=== PATIENT | male | born 1960 | race Caucasian/White ===

== ENCOUNTER 2021-10-07 16:07 | Emergency (ER) | payer SELFPAY ==
--- OUTSIDE RECORDS SUMMARY | 2021-10-07 16:11 | XMS REPORT | Continuity of Care Document ---
:1960 Author Organization [facility] Address [address] [place] [address] Care Team Providers Name Role Phone Daniel Apodaca MD Attending Clinician Doctor Unassigned, Name Attending Clinician Unavailable Singer DALY Attending Clinician Payers Payer Name Policy Type Policy Number Effective Date Expiration Date S ource Problems Condition Condition Condition Status Onset Resolution Last Treating Co mments Source Name Details Category Date Date Treatment Clinician Date No known No known Disease Unive rs active active ity of problems problems [facility] Allergies, Adverse Reactions, Alerts Allergy Allergy Status Severity Reaction(s) Onset Inactive Treating Comm ents Source Name Type Date Date Clinician Codeine Propensi Active Other - See 2020-0 Shaking U nivers ty to comments 08-05 ity of adverse 00:00: [place] reaction 00 Medical s Branch Lisinopr Propensi Active Palpitations 2020-0 Univers il ty to 08-05 ity of adverse 00:00: [place] reaction 00 Medical s Branch Tramadol Propensi Active Nausea 2020-0 Univer s ty to and/or 08-05 ity of adverse Vomiting 00:00: [place] reaction 00 Medical s Branch CODEINE DRUG Active Other-Cmnt 2020-0 Unive rs INGREDI 08-05 ity of 00:00: [place] 00 Medical Branch LISINOPR DRUG Active Palpitations 2020-0 Un santy [place] INGREDI 08-05 ity of 00:00: [place] 00 Medical Branch TRAMADOL DRUG Active N/V 2020-0 Univers INGREDI 08-05 ity of 00:00: [place] 00 [facility] Social History Social Habit Start Date Stop Date Quantity Comments Source Sex Assigned At Uni versity [facility] Exposure to SARS-CoV-2 Not sure [facility] [place] (event) [facility] Smoking Status Start Date Stop Date Source Unknown if ever smoked Universit y of [facility] Medications Ordered Filled Start Stop Current Ordering Indication Dosage Frequency Signature Comments Components Source Medication Medication Date Date Medication? Clinician (SIG) Name Name amoxicillin 2019- No 1{tbl} 1 tablet, Univers -clavulanat 01-16 Oral, ity of e 16:30: 15:52 ONCE, 1 [place] (AUGMENTIN) 00 :00 dose, Sun Med ical 875-125 mg 01/17/20 at [facility] per tablet 1130, 1 tablet [place]
Re ason for Anti-Infec tive: Documented Infection< br>Documen oli Infection Site: Abdominal< br>Duratio n of Therapy: 10 days iohexol 2019- No 120mL 120 mL, Unive rs (OMNIPAQUE 01-16 Intravenou it y of 350 13:45: 13:28 s, ONCE, 1 [place] BULK-100 00 :00 dose, [facility] Medica l mL) 01/17/20 at Branch injection 0845, 120 mL Routine morpHINE 2019- No 4mg 4 mg, Slow Un santy injection 4 01-16 IV Push, ity of mg 13:45: 14:11 ONCE, 1 [place] 00 :00 dose, Sun Medical 01/17/20 at Branch 0845, STAT famotidine 2019- No 20mg 20 mg, Univ ers (PEPCID 01-16 Intravenou ity o f (PF)) 13:30: 12:48 s, ONCE, 1 [place] injection 00 :00 dose, Sun Medic al 20 mg 01/17/20 at Branch 0830, [place] proMETHazin 2019- No 12.5mg 12.5 mg, Univers e 01-16 IV ity of (PHENERGAN) 13:30: 12:50 [place], [place] 12.5 mg in 00 :00 ONCE, 1 Medica l NaCl 0.9% dose, [place] Branc h (NS) 50 mL 01/17/20 at piggyback 0830, 50 mL NaCl 0.9% 2019- No 1000mL at 999 Uni vers (NS) bolus 01-16 mL/hr, ity of infusion 12:30: 14:13 1,000 mL, [place] 1,000 mL 00 :00 IV Medical Infusion, [place] ONCE, 1 dose, 01/17/20 at 0730, [place] dicyclomine 2020-0 Yes [id number] 20mg Take 1 Univers 20 mg 7-05 tablet by ity of tablet 00:00: mouth [place] 00 every 6 Medical (six) Branch hours as needed for Abdominal pain. proMETHazin 2020-0 Yes [id number] 25mg Take 1 Univers e 25 mg 7-05 tablet by ity of tablet 00:00: mouth [place] 00 every 6 Medical (six) Branch hours as needed for Nausea and Vomiting (N/V). lactulose 2020-0 Yes [id number] 30mL Take 30 mL Univers 10 gram/15 7-05 by mouth ity o f mL oral 00:00: daily. [place] solution 00 Until Medical stools are Branch soft amoxicillin 2019-0 2020- No [id number] 1{tbl} Take 1 Univers -clavulanat 7-05 07-16 tablet by it y of e 875-125 00:00: 04:59 mouth [place] mg per 00 :00 every 12 Medical tablet (twelve) Branch hours for 10 days. ondansetron 2019-2019- No 4mg 4 mg, Slow Univers (ZOFRAN 08-05 IV Push, ity of (PF)) 22:15: 21:16 ONCE, 1 [place] injection 4 00 :00 dose, Wed Med ical mg 08/05/19 at Branch 1615, [place] dexamethaso 2019- No 10mg 10 mg, IV Univers ne 08-05 Push, ity of (DECADRON 22:15: 21:19 ONCE, 1 [place] PHOSPHATE) 00 :00 dose, Wed Medi toshia injection 08/05/19 at Bran ch 10 mg 1615, STAT piperacilli 2019-2019- No 3.375g 3.375 g, Univers n-tazobacta 08-05 IV ity of m (ZOSYN) 21:05: 21:50 [place], [place] 3.375 g in 00 :00 ONCE, 1 Medica l NaCl 0.9% dose, Wed Branc h (NS) 100 mL 08/05/19 at MINI-BAG 1515, 100 mL
Reas on for Anti-Infec tive: Documented Infection< br>Documen oli Infection Site: Skin / Soft Tissue
Duration of Therapy: 7 days FENTanyl PF 2019-0 2020- No 100ug 100 mcg, Univers (SUBLIMAZE 08-05 Slow IV ity o f (PF)) 21:04: 21:17 Push, [place] injection 00 :00 ONCE, 1 Medical 100 mcg dose, Wed Branch 08/05/19 at 1515, STAT chlorhexidi 2020-0 Yes [id number] 15mL Swish and Univers ne 0.12 % 1-22 spit out ity of mouthwash 00:00: 15 mL 2 [place] 00 (two) Medical times Branch daily. methylPREDN 2020-0 Yes [id number] Take by Univers ISolone -22 mouth ity of (MEDROL, 00:00: SEE-INSTRU [place] NEGRITA,) 4 mg 00 CTIONS. Medica l tablets follow Branch package directions acetaminoph 2020-0 Yes [id number] 1{tbl} Take 1 Univers en-codeine 1-22 tablet by ity of (TYLENOL-CO 00:00: mouth [place] DEINE #3) 00 every 4 Medical 300-30 mg (four) Branch tablet hours as needed for Pain (scale 7-10). ondansetron 2020-0 Yes [id number] 4mg Take 1 Univers 4 mg 1-22 tablet by ity of disintegrat 00:00: mouth [place] ing tablet 00 every 8 Medica l (eight) Branch hours as needed for Nausea and Vomiting (N/V). penicillin 2020-0 Yes [id number] 1000mg Take 2 Univers v potassium 1-22 tablets by it y of 500 mg 00:00: mouth 2 [place] tablet 00 (two) Medical times Branch daily. chlorhexidi 2020-0 Yes [id number] 15mL Swish and Univers ne 0.12 % 1-22 spit out ity of mouthwash 00:00: 15 mL 2 [place] 00 (two) Medical times Branch daily. methylPREDN 2020-0 Yes [id number] Take by Univers ISolone 1-22 mouth ity of (MEDROL, 00:00: SEE-INSTRU [place],) 4 mg 00 CTIONS. Medica l tablets follow Branch package directions acetaminoph 2020-0 Yes [id number] 1{tbl} Take 1 Univers en-codeine 1-22 tablet by ity of (TYLENOL-CO 00:00: mouth [place] DEINE #3) 00 every 4 Medical 300-30 mg (four) Branch tablet hours as needed for Pain (scale 7-10). ondansetron Yes [id number] 4mg Take 1 Univers 4 mg -22 tablet by ity of disintegrat 00:00: mouth [place] ing tablet 00 every 8 Medica l (eight) Branch hours as needed for Nausea and Vomiting (N/V). penicillin 2019-0 Yes [id number] 1000mg Take 2 Univers v potassium 1-22 tablets by it y of 500 mg 00:00: mouth 2 [place] tablet 00 (two) Medical times Branch daily. chlorhexidi 2019- No [id number] 15mL Swish and Univers ne 0.12 % 08-05-05 spit out ity o f mouthwash 00:00: 00:00 15 mL 2 [place] 00 :00 (two) Medical times Branch daily. methylPREDN 2019- No [id number] Take by Univers ISolone 08-05-05 mouth ity of (MEDROL, 00:00: 00:00 [place]INSTRU [place] NEGR[place],) 4 mg 00 :00 CTIONS. Medica l tablets follow Branch package directions acetaminoph 2019- No [id number] 1{tbl} Take 1 Univers en-codeine 08-05-05 tablet by ity of (TYLENOL-CO 00:00: 00:00 [place] DEINE #3) 00 :00 every 4 Medical 300-30 mg (four) Branch tablet hours as needed for Pain (scale 7-10). ondansetron 2019- No [id number] 4mg Take 1 Univers 4 mg 08-05-05 tablet by ity of disintegrat 00:00: 00:00 [place] ing tablet 00 :00 every 8 Medica l (eight) Branch hours as needed for Nausea and Vomiting (N/V). penicillin 2020- No [id number] 1000mg Take 2 Univers v potassium -02 02-05 tablets by i ty of 500 mg 00:00: 00:00 mouth 2 [place] tablet 00 :00 (two) Medical times Branch daily. proMETHazin Yes 25mg Take 1 Tab Univers e 9-27 by mouth ity of (PHENERGAN) 00:00: every 6 [place] 25 mg 00 (six) Medical tablet hours as Branch needed for Nausea and Vomiting (N/V). traMADOL 2015-0 Yes 50mg Take 1 Tab Uni vers (ULTRAM) 50 9-27 by mouth ity of mg tablet 00:00: every 6 [place] 00 (six) Medical hours as Branch needed for Pain (scale 4-6). proMETHazin 2015-0 Yes 25mg Take 1 Tab Univers e 9-27 by mouth ity of (PHENERGAN) 00:00: every 6 [place] 25 mg 00 (six) Medical tablet hours as Branch needed for Nausea and Vomiting (N/V). traMADOL 2015-0 Yes 50mg Take 1 Tab Uni vers (ULTRAM) 50 9-27 by mouth ity of mg tablet 00:00: every 6 [place] 00 (six) Medical hours as Branch needed for Pain (scale 4-6). proMETHazin 2015-0 Yes 25mg Take 1 Tab Univers e 9-27 by mouth ity of (PHENERGAN) 00:00: every 6 [place] 25 mg 00 (six) Medical tablet hours as Branch needed for Nausea and Vomiting (N/V). traMADOL 2015-0 Yes 50mg Take 1 Tab Uni vers (ULTRAM) 50 9-27 by mouth ity of mg tablet 00:00: every 6 [place] 00 (six) Medical hours as Branch needed for Pain (scale 4-6). proMETHazin 2015-0 2020- No 25mg Take 1 Tab Univers e 9-27 07-05 by mouth ity of (PHENERGAN) 00:00: 00:00 every 6 [place] 25 mg 00 :00 (six) Medical tablet hours as Branch needed for Nausea and Vomiting (N/V). traMADOL 2014-0 2020- No 50mg Take 1 Tab Un santy (ULTRAM) 50 9-27 07-05 by mouth ity of mg tablet 00:00: 00:00 every 6 [place] 00 :00 (six) Medical hours as Branch needed for Pain (scale 4-6). Vital Signs Vital Name Observation Time Observation Value Comments Source Oxygen saturation in 2020-01-17 15:59:30 99 /min [facility] Arterial blood by [facility] Pulse oximetry Branch Heart rate 2020-01-17 15:00:00 72 /min [facility] Respiratory rate 2020-01-17 15:00:00 18 /min [facility] Medical [place] Systolic blood 2020-01-17 15:00:00 150 mm[Hg] Univer sity of pressure [facility] Diastolic blood 2020-01-17 15:00:00 83 mm[Hg] Unive rsity of [facility] Body temperature 2020-01-17 12:10:00 37.44 [facility] Body weight 2020-01-17 12:10:[address] [facility] BMI 2020-01-17 12:10:00 24.33 kg/m2 Universi ty [facility] Systolic blood 2019-08-05 22:35:47 154 mm[Hg] Univer sity of pressure [facility] Diastolic blood 2019-08-05 22:35:47 92 mm[Hg] [facility] Heart rate 2019-08-05 22:35:47 86 /min [facility] Body temperature 2019-08-05 22:35:47 37.44 Hortensia [facility] Respiratory rate 2019-08-05 22:35:47 18 /min [facility] Oxygen saturation in 2019-08-05 22:35:47 100 /min [facility] Arterial blood by [facility] Pulse oximetry [place] Body height 2019-08-05 20:35:00 172.7 cm [facility] Body weight 2019-08-05 20:35:00 72.576 kg [facility] BMI 2019-08-05 20:35:00 24.33 kg/m2 [facility] Procedures Procedure Date / Time Performing Clinician Source Performed URINALYSIS 2020-01-17 14:14:00 Travis Apodaca [facility] CT ABDOMEN PELVIS W 2020-01-17 13:32:27 Travis [facility]odaca [facility] COVID-19 (ID NOW RAPID 2020-01-17 12:54:00 Travis Apodaca [facility] TESTING) Medical Branch LIPASE 2020-01-17 12:23:00 Travis Apodaca [facility] HEPATIC FUNCTION PANEL 2020-01-17 12:23:00 Travis Apodaca [facility] ([id number]) (ALB,T.PRO,BILI Medical Branch T,BU/BC,ALT,AST,ALK PHOS) BASIC METABOLIC PANEL 2020-01-17 12:23:00 Constanza Brooklyn [facility] (NA, K, CL, CO2, Medical Branch GLUCOSE, BUN, CREATININE, CA) CBC WITH DIFFERENTIAL 2020-01-17 12:23:00 Travis Apodaca [facility] NOTICE OF PRIVACY 2020-01-17 12:00:00 Doctor Unassigned, No [facility] PRACTICES Name [facility] CONSENT/REFUSAL FOR 2020-01-17 11:58:34 Doctor Unassigned, No [facility] Name [facility] INCISION AND DRAINAGE 2019-08-05 20:40:51 Amaury Brito sity [facility] CONSENT/REFUSAL FOR 2019-08-05 20:28:16 Doctor Unassigned, No [facility] Name Medical [place] Encounters Start End Encounter Admission Attending Care Care Encounter Source Date/Time Date/Time Type Type Clinicians Facility Department ID 2020-01-17 2020-01-17 Emergency Constanza [facility] [id number] Univers 07:04:34 11:04:00 Travis Vega [id number] ity [facility] [id number] [facility] [id number] [place] [id number] [place] 2020-01-17 2020-01-17 Emergency X [facility] ERT [id number] Univers 07:04:34 07:04:34 ity of [facility] 2020-01-17 2020-01-17 Orders Doctor STOLL [id number] Univers 00:00:00 00:00:00 Only UnassignedVIET [id number] [place] [facility] [id number] [place] [id number] [facility] 009 Branch 2019-08-05 2019-08-05 Emergency Singer MTGARY [id number] Univers 14:30:59 18:55:00 Amaury Vega [id number] i ty of [place] [id number] [facility] [id number] [facility] 084 Branch 2019-08-05 2019-08-05 Orders Doctor STOLL [id number] Univers 00:00:00 00:00:00 Only Unassigned, VIET [id number] ity of [place] [facility] [id number] [place] [id number] [address] Results Test Description Test Time Test Comments Results Result Comments Source Urinalysis 2020-01-17 14:40:00 Test Item Value Reference Range Interpretation Comme nts APPEARANCE (test code = Clear Clear 8118747697) COLOR (test code = 2281964846) Lissette Yellow A PH (test code = 3702159876) 4.8-8.0 SP GRAVITY (test code = 1.003-1.030 2987628351) GLU U QUAL (test code = Normal Normal 6418572709) BLOOD (test code = 0765866420) Negative Negative KETONES (test code = 4222883184) Negative Negative PROTEIN (test code = 2887-8) Negative Negative UROBILIN (test code = 4.0 mg/dL Normal A 4155884239) BILIRUBIN (test code = Negative Negative 7879748864) NITRITE (test code = 4193126147) Negative Negative LEUK LINDSAY (test code = Negative Negative 3712426535) RBC/HPF (test code = 1113730847) See_Comment [Automated message] The system which ge nerated this result transmit oli reference range: 0 - 3 HP F. The reference range was not used to interpret th is result as normal/abnormal . WBC/HPF (test code = 3786210931) See_Comment [Automated message] The system which ge nerated this result transmit oli reference range: 0 - 5 HP F. The reference range was not used to interpret th is result as normal/abnormal . BACTERIA (test code = Negative Negative 0859937954) Lab Interpretation (test code = Abnormal 94450-6) [facility] W [id number] 14:39:35 Motion artifact limiting the evaluation. Mural wall thickening and enhancement and pericolonic fat stranding aremost pronounced about the sigmoid colon with sigmoid colon diverticulosis,these findingsare suggestive diverticulitis. Similar changes areappreciated about the ascending and descending colon suggestive of colitis.No free air or localized fluid collection is identified. Normal-appearingappendix. Preliminary Report Dictated by Resident: Melo Carter ?MD. Donn, have reviewed this study and agree withthe above report.EXAM: CT ABDOMEN AND PELVIS WITH CONTRAST HISTORY: 2 day of LLQ abdominal pain, constant with wax/wane intensity,cramping. Leukocytosis of 13.1 COMPARISON: None. TECHNIQUE AND FINDINGS: Contiguous axial imaging from the level of the lungbases through the proximal thighs was performed after the administration of120 cc of intravenous Omnipaque contrast. Coronal and sagittalreconstructions were obtained. ?Auto mA and/or iterative reconstructionwereused to reduce radiation dose. FINDINGS: Motion artifact is limiting the evaluation. LOWER THORAX: The lungs bases are clear. No cardiomegaly. LIVER: A 0.4 cm hypoattenuating hepatic focus is seen in segment VIII(2:21). ?Normal contour. GALLBLADDER AND BILIARY TREE: The gallbladder is distended but not dilated.The CBD is mildly dilated measuring 0.7 cm. ? No gallbladder wallthickening. SPLEEN: No splenomegaly. PANCREAS: No ductal dilation or masses. ADRENAL GLANDS: No adrenal nodules. KIDNEYS: No hy dronephrosis, stones, or masses. PERITONEUM AND RETROPERITONEUM: No free air or fluid. LYMPH NODES: No lymphadenopathy. GI TRACT: Small sliding hiatal hernia is noted. Appendix appearsunremarkable (2:90). The colon and rectum is distended with liquid-likestool. Diverticulosis of the sigmoid colon is noted. Mural wall thickeningand enhancement with pericolonic fat stranding is appreciated. The extentof the symptomatic changes cannot be accurately assessed due to motionartifact and it might be involving the ascending and descending colon also. PELVIS/BLADDER: Mild indentation of the celiac trunk by the diaphragmaticcrus without subsequent dilatation. VESSELS: Unremarkable. BONES AND SOFT TISSUES: Nosuspicious lytic or sclerotic bony lesions. L4over the L5 grade 1 posterior listhesis is noted. [facility], Radiant Results Inft User - 01/17/2020 9:40 AM CDTEXAM: CT ABDOMEN AND PELVIS WITH CONTRASTHISTORY: 2 day of LLQ abdominal pain, constant with wax/wane intensity,cramping. Leukocytosis of 13.1COMPARISON: None.TECHNIQUE AND FINDINGS: Contiguous axial imaging from the level of the lungbases through the proximal thighs was performed after the administration of120 cc of intravenous Omnipaque contrast. Coronal and sagittalreconstructions were obtained. Auto mA and/or iterative reconstructionwere used to reduce radiation dose.FINDINGS:Motion artifact is limiting the evaluation.LOWER THORAX: The lungs bases are clear. No cardiomegaly. LIVER: A 0.4 cm hypoattenuating hepatic focus is seen in segment VIII(2:21). Normal contour.GALLBLADDER AND BILIARY TREE: The gallbladder is distended but not dilated.The CBD is mildly dilated measuring 0.7 cm. No gallbladder wallthickening.SPLEEN: No splenomegaly.PANCREAS: No ductal dilation or masses.ADRENAL GLANDS: No adrenal nodules.KIDNEYS: No hydronephrosis, stones, or masses.PERITONEUM AND RETROPERITONEUM: No free air or fluid.LYMPH NODES: No lymphadenopathy.GI TRACT: Small sliding hiatal hernia is noted. Appendix appearsunremarkable (2:90). The colon and rectum is distended with liquid- likestool. Diverticulosis of the sigmoid colon is noted. Mural wall th ickeningand enhancement with pericolonic fat stranding is appreciated. The extentof the symptomatic changes cannot be accurately assessed due to motionartifact and it might be involving the ascending and descending colon also.PELVIS/BLADDER: Mild indentation of the celiac trunk by the diaphragmaticcrus without subsequent dilatation.VESSELS: Unremarkable.BONES AND SOFT TISSUES: No suspicious lytic or sclerotic bony lesions. L4over the L5 grade 1 posterior listhesis is noted.IMPRESSIONMotion artifact limiting the evaluation.Mural wall thickening and enhancement and pericolonic fat stranding aremost pronounced about the sigmoid colon with sigmoid colon diverticulosis,these findings are suggestive diverticulitis. Similar changes areappreciated about the ascending and descending colon suggestive of colitis.No free air or localized fluid collection is identified. Normal- appearingappendix.Preliminary Report Dictated by Resident: Melo Sommers MD., have reviewed this studyand agree withthe above report.[facility] (ID NOW RAPID TESTING) 2020-01-17 13:18:00 Test Item Value Reference Range Interpretation Comments SARS-CoV-2 Rapid ID NOW Not Detected Not Detected (test code = 00528-2) FLORENCIO (test code = FLORENCIO) ID NOW COVID-19 Assay is an isothermal nucleic acid amplification test intended for the qualitative detection of nucleic acid from SARS-CoV-2 viral RNA in nasopharyngeal (MUSHROOM PRESS OPERATOR) specimens. It is used under Emergency Use Authorization (EUA) by FDA. The limit of detection (LOD) of the assay is 125 Genome Equivalents/mL. A positive result is indicative of the presence of SARS-CoV-2 RNA. ?Clinical correlation with patient history and other diagnostic information is necessary to determine patient infection status. A negative (Not Detected) result does not preclude SARS-CoV-2 infection. In patients with clinical symptoms and other tests that are consistent with SARS-CoV-2 infection, negative results should be treated as presumptive negative and a new specimen should be tested with alternative PCR molecular test. Invalid: Please collect a new specimen for repeat patient testing if clinically indicated. Lab Interpretation Normal (test code = 95215-7) [facility] (ALB, T.PRO, BILI T, BU/BC, ALT, AST, ALK PHOS)2020-01-17 12:57:00 Test Item Value Reference Range Interpretation Comments TOTAL BILI (test code = 5306514430) 0.7 mg/dL 0.1-1.1 BILI UNCON (test code = 1740281011) 0.7 mg/dL 0.1-1.1 BILI CONJ (test code = 6680503988) 0.0 mg/dL 0-0.3 T PROTEIN (test code = 3410986118) 7.4 g/dL 6.3-8.2 ALBUMIN (test code = 7675651464) 4.5 g/dL 3.5-5 ALK PHOS (test code = 4873044678) 99 U/L 34-122 ALTv (test code = 1742-6) 23 U/L 5-50 AST(SGOT) (test code = 8740708500) 28 U/L 13-40 Lab Interpretation (test code = Normal 27547-7) [facility] (NA, K, CL, CO2, GLUCOSE, BUN, CREATININE, CA)2020-01-17 12:56:00 Test Item Value Reference Range Interpretation Comments NA (test code = 139 mmol/L 135-145 2204898559) K (test code = 3.6 mmol/L 3.5-5 6390973117) CL (test code = 107 mmol/L 98-108 8268793715) CO2 TOTAL (test code = 22 mmol/L 23-31 L 5352422060) AGAP (test code = 2-16 4092090962) BUN (test code = 20 mg/dL 7-23 1319940320) GLUCOSE (test code = 197 mg/dL 70-110 H 5941711464) CREATININE (test code = 1.01 mg/dL 0.6-1.25 0570817319) CALCIUM (test code = 9.5 mg/dL 8.6-10.6 2936838240) eGFR Calculation mL/min/1.73m2 (Non-) (test code = 1094070172) eGFR Calculation mL/min/1.73m2 () (test code = 2116459481) FLORENCIO (test code = FLORENCIO) Association of Glomerular Filtration Rate (GFR) and Staging of Kidney Disease* + --+ --+ ------+| GFR (mL/min/1.73 m2) ?| With Kidney Damage ?| ?Without Kidney Damage+ --------+ --------+ +| ?>90 ?| ?Stage one ?| ? Normal ?+ ---+ ---+ -------+| ?60-89 ?| ?Stage two ?| ? Decreased GFR ? + --+ --+ ------+| ?30-59 ?| ?Stage three ?| ? Stage three ? + --+ --+ ------+| ?15-29 ?| ?Stage four ? | ? Stage four ?+ ---+ ---+ -------+| ?<15 (or dialysis) ? ?| ?Stage five ? | ? Stage five ?+ ---+ ---+ -------+ *Each stage assumes the associated GFR level has been in effect for at least three months. ?Stages 1 to 5, with or without kidney disease, indicate chronic kidney disease. Notes: Determination of stages one and two (with eGFR >59mL/min/1.73 m2) requires estimation of kidney damage for at least three months as defined by structural or functional abnormalities of the kidney, manifested by either:Pathological abnormalities or Markers of kidney damage (including abnormalities in the composition of the blood or urine or abnormalities in imaging tests). Lab Interpretation Abnormal (test code = 34438-6) [facility] HospitalLipase [id number] 12:56:00 Test Item Value Reference Range Interpretation Comments LIPASE (test code = 5350227658) 39 U/L 0-220 Lab Interpretation (test code = Normal 04231-4) [facility] WITH [id number] 12:36:00 Test Item Value Reference Range Interpretation Comments WBC (test code = See_Comment H [Automated 6690-2) message] The sy stem which generated this result transmitted reference range : 4.20 - 10.70 10*3/?L. The reference range was not used to interpret this result as normal/abnormal . RBC (test code = See_Comment [Automated 789-8) message] The sy stem which generated this result transmitted reference range : 4.26 - 5.52 10*6/?L. The reference range was not used to interpret this result as normal/abnormal . HGB (test code = 17.4 g/dL 12.2-16.4 H 718-7) HCT (test code = 49.4 % 38.4-49.3 H 4544-3) MCV (test code = 95.9 fL 81.7-95.6 H 787-2) MCH (test code = 33.8 pg 26.1-32.7 H 785-6) MCHC (test code = 35.2 g/dL 31.2-35 H 786-4) RDW-SD (test code = 44.1 fL 38.5-51.6 55102-5) RDW-CV (test code = 12.5 % 12.1-15.4 788-0) PLT (test code = See_Comment [Automated 777-3) message] The sy stem which generated this result transmitted reference range : 150 - 328 10*3/ ?L. The reference r negra was not used to interpret this result as normal/abnormal . MPV (test code = 10.2 fL 9.8-13 96648-3) NRBC/100 WBC (test See_Comment [Automat ed code = 7368926007) message] The system which generated this result transmitted reference range : 0.0 - 10.0 /100 WBCs. The refer ence range was not u sed to interpret th is result as normal/abnormal . NRBC x10^3 (test code <0.01 See_Comment [Auto mated = [id number]) message] The s ystem which generated this result transmitted reference range : 10*3/?L. The reference range was not used to interpret this result as normal/abnormal . GRAN MAT (NEUT) % 68.2 % (test code = 770-8) IMM GRAN % (test code 0.50 % = 0591340076) LYMPH % (test code = 27.7 % 736-9) MONO % (test code = 2.1 % 5905-5) EOS % (test code = 1.2 % 713-8) BASO % (test code = 0.3 % 706-2) GRAN MAT x10^3(ANC) 8.90 10*3/uL 1.99-6.95 H (test code = 9099715057) IMM GRAN x10^3 (test 0.06 10*3/uL 0-0.06 code = 9372755516) LYMPH x10^3 (test code 3.62 10*3/uL 1.09-3.23 H = 731-0) MONO x10^3 (test code 0.27 10*3/uL 0.36-1.02 L = 742-7) EOS x10^3 (test code = 0.16 10*3/uL 0.06-0.53 711-2) BASO x10^3 (test code 0.04 10*3/uL 0.01-0.09 = 704-7) Lab Interpretation Abnormal (test code = 05072-3) [facility] [id number] 20:40:51Amaury Brito DO ? ? 08/05/2019 ?5:24 PMI and DDate/Time: 08/05/2019 4:55 PMPerformed by: Amaury Brito DOAuthorized by: Amaury Brito DO Consent: ?Consent obtained: ?Verbal ?Consent given by:?Patient ?Risks discussed: ?Incomplete drainage, bleeding, pain and infection ?Alternatives discussed: ?No treatment and delayed treatmentLocation: ?Type: ?Abscess ?Location: ?Head ?Head location: ?FacePre- procedure details: ?Skin preparation: ?HibiclensAnesthesia (see MAR for exact dosages): ?Anesthesia method: ?Local infiltration and nerve block ?Local anesthetic: ?Lidocaine 1% WITH epi ?Block location: ?Mental, inferior alveolar. ?Block needle gauge: ?27 G ?Block anesthetic: ?Lidocaine 1% WITH epi and bupivacaine 0.25% w/o epi ?Block injection procedure: ?Introduced needle, anatomic landmarks identified, incremental injection and anatomic landmarks palpated ?Block outcome: ?Incomplete blockProcedure type: ?Complexity: ?ComplexProcedure details: ?Needle aspiration: no ? ?Incision types: ?Stab incision ?Incision depth: ?Subcutaneous ?Scalpel blade: ?11 ?Wound management: ?Probed and deloculated and irrigated with saline ?Drainage: ?Purulent ?Drainage amount: ?Moderate ?Wound treatment: ?Wound left openPost-procedure details: ?Patient tolerance of procedure: ?Tolerated well, no immediate complications [facility]"
[2021-10-07] MEDS ORDERED: LIDOCAINE 1% MPF 5 ML VIAL ONE (16:19)
[2021-10-07] MEDS ORDERED: TETANUS & DIPHTHERIA TOX,ADULT 0.5 ML VIAL ONE (16:19)
--- NOTE | 2021-10-07 16:24 | EDPHYS ---
Physician Documentation [facility] Name: Vadim Wilson Age: 61 yrs Sex: Male : 1960 Arrival Date: 10/07/2021 Time: 16:10 Bed 23 Private MD: ED Physician Kervin Troy HPI: 10/07 16:15 This 61 yrs old Male presents to ER via Unassigned with complaints of fish hook on kb right hand. 16:15 The patient or guardian reports the patient has a suspected foreign body, of the right kb hand. The reported likely foreign body is a fishhook. Onset: The symptoms/episode began/occurred just prior to arrival. Current symptoms: foreign body sensation. Treatment Prior to Arrival: none. The patient has not experienced similar symptoms in the past. The patient has not recently seen a physician. Historical: - Allergies: 16:26 No Known Allergies; ld1 - Home Meds: 16:26 None [Active]; ld1 - PMHx: 16:26 None; ld1 - PSHx: 16:26 Unable to Obtain; ld1 - Immunization history:: Adult Immunizations up to date, Client reports receiving the 2nd dose of the Covid vaccine. - Social history:: Smoking status: Patient reports the use of cigarette tobacco products, Patient/guardian denies using alcohol. ROS: 16:14 Constitutional: Negative for fever, chills, and weight loss. kb 16:14 Skin: Positive for puncture, of the medial aspect of right hand, FB. 16:14 All other systems are negative. Exam: 16:13 Constitutional: This is a well developed, well nourished patient who is awake, alert, kb and in no acute distress. Head/Face: Normocephalic, atraumatic. ENT: Moist Mucous membranes Respiratory: Respirations even and unlabored. No increased work of breathing. Talking in full sentences MS/ Extremity: Pulses equal, no cyanosis. Neurovascular intact. Full, normal range of motion. Neuro: Awake and alert, GCS 15, oriented to person, place, time, and situation. Moves all extremities. Normal gait. Psych: Awake, alert, with orientation to person, place and time. Behavior, mood, and affect are within normal limits. 16:13 Skin: injury, puncture(s), that are superficial, of the medial aspect of right hand, with fishhook . Vital Signs: 16:14 BP 178 / 105; Pulse 76; Resp 17; Temp 98.3(TE); Pulse Ox 100% on R/A; Weight 70.31 kg; ab2 Height 5 ft. 8 in. (172.72 cm); Pain 5/10; 16:26 BP 162 / 98; Pulse 72; Resp 18; Pulse Ox 100% on R/A; ld1 16:14 Body Mass Index 23.57 (70.31 kg, 172.72 cm) ab2 Procedures: 16:23 Foreign Body Removal: a fishhook, from the right medial aspect of right hand, by marta kb pushed through, cut and hook pulled out. The patient tolerated the removal well. MDM: 16:10 Patient medically screened. kb 16:13 Data reviewed: vital signs, nurses notes. kb 16:23 Data interpreted: Pulse oximetry: on room air is 100 %. Interpretation: normal. kb Counseling: I had a detailed discussion with the patient and/or guardian regarding: the historical points, exam findings, and any diagnostic results supporting the discharge/admit diagnosis, the need for outpatient follow up, a family practitioner, to return to the emergency department if symptoms worsen or persist or if there are any questions or concerns that arise at home. 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 Exp: ld1 12/02/2022. Lot #: [id number]. } Route: IM; Site: left deltoid; 16:25 Follow up: Response: No adverse reaction ld1 Disposition Summary: 10/07/21 16:24 Discharge Ordered Location: Home kb Condition: Stable kb Diagnosis - Puncture wound with foreign body of right hand kb Followup: kb - With: Emergency Department - When: As needed - Reason: Worsening of condition Followup: kb - With: Private Physician - When: 2 - 3 days - Reason: Recheck today's complaints, Continuance of care, Re-evaluation by your physician Discharge Instructions: - Discharge Summary Sheet kb - Puncture Wound, [id number] kb - Hand or Foot Foreign Body, Adult kb Forms: - Medication Reconciliation Form kb - Thank You Letter kb - Antibiotic Education kb - Prescription Opioid Use kb Addendum: 10/11/2021 07:06 Co-signature as Attending Physician, Kervin Troy MD I agree with the assessment and c smart plan of care. Signatures: Apoorva Rea, CONCRETE TECHNICIAN-C CONCRETE TECHNICIAN-Kervin Smith MD MD cha Dibbern, Lauren, RN RN ld1
--- NOTE | 2021-10-07 16:24 | ER ---
Nurse's Notes [facility] Name: Vadim Wilson Age: 61 yrs Sex: Male : 1960 Arrival Date: 10/07/2021 Time: 16:10 Bed 23 Private MD: Diagnosis: Puncture wound with foreign body of right hand Presentation: 10/07 16:14 Chief complaint: Patient states: "My girlfriend got me this hook and I reached up for ab2 something and I brought my hand shala and it caught it.". Coronavirus screen: Vaccine status: Patient reports receiving the 2nd dose of the covid vaccine. Client denies travel out of the [place] in the last 14 days. At this time, the client does not indicate any symptoms associated with coronavirus-19. Ebola Screen: Patient negative for fever greater than or equal to 101.5 degrees Fahrenheit, and additional compatible Ebola Virus Disease symptoms Patient denies exposure to infectious person. Patient denies travel to an Ebola-affected area in the 21 days before illness onset. No symptoms or risks identified at this time. Initial Sepsis Screen: Does the patient meet any 2 criteria? No. Patient's initial sepsis screen is negative. Does the patient have a suspected source of infection? No. Patient's initial sepsis screen is negative. Risk Assessment: Do you want to hurt yourself or someone else? Patient reports no desire to harm self or others. Onset of symptoms is unknown. 16:14 Method Of Arrival: Ambulatory ab2 16:14 Acuity: RENITA 4 ab2 Triage Assessment: 16:17 General: Appears in no apparent distress. uncomfortable, Behavior is calm, cooperative, ab2 appropriate for age. Pain: Complains of pain in right hand. Injury Description: Foreign body is located right hand. Historical: - Allergies: 16:26 No Known Allergies; ld1 - Home Meds: 16:26 None [Active]; ld1 - PMHx: 16:26 None; ld1 - PSHx: 16:26 Unable to Obtain; ld1 - Immunization history:: Adult Immunizations up to date, Client reports receiving the 2nd dose of the Covid vaccine. - Social history:: Smoking status: Patient reports the use of cigarette tobacco products, Patient/guardian denies using alcohol. Screenin:26 Abuse screen: Denies threats or abuse. Denies injuries from another. Nutritional ld1 screening: No deficits noted. Nutritional screening: No deficits noted. Tuberculosis screening: No symptoms or risk factors identified. Fall Risk None identified. Assessment: 16:25 General: Appears in no apparent distress. comfortable, Behavior is calm, cooperative, ld1 appropriate for age. Pain: Denies pain. Neuro: Level of Consciousness is awake, alert, obeys commands, Oriented to person, place, time, situation. Cardiovascular: Capillary refill < 3 seconds Patient's skin is warm and dry. Respiratory: Airway is patent Respiratory effort is even, unlabored, Respiratory pattern is. GI: Abdomen is flat, non-distended. Derm: fish hook to left hand. Vital Signs: 16:14 BP 178 / 105; Pulse 76; Resp 17; Temp 98.3(TE); Pulse Ox 100% on R/A; Weight 70.31 kg; ab2 Height 5 ft. 8 in. (172.72 cm); Pain 5/10; 16:26 BP 162 / 98; Pulse 72; Resp 18; Pulse Ox 100% on R/A; ld1 16:14 Body Mass Index 23.57 (70.31 kg, 172.72 cm) ab2 ED Course: 16:10 Patient arrived in ED. am2 16:10 Apoorva Rea FNP-C [facility]. kb 16:10 Kervin Troy MD is Attending Physician. kb 16:17 Triage completed. ab2 16:17 Arm band placed on right wrist. ab2 16:26 Patient has correct armband on for positive identification. Placed in gown. Bed in low ld1 position. Call light in reach. Pulse ox on. NIBP on. Door closed. Noise minimized. 16:26 No provider procedures requiring assistance completed. Patient did not have IV access ld1 during this emergency room visit. 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 Exp: ld1 12/02/2022. Lot #: [id number]. } Route: IM; Site: left deltoid; 16:25 Follow up: Response: No adverse reaction ld1 Outcome: 16:24 Discharge ordered by . kb 16:33 Patient left the ED. ld1 Signatures: Apoorva Rea, CHANA-C TECHNOLOGY TRAINING ASSOCIATE-Lanny Hutton am2 Chayo Toney, RN RN ld1 oRnald Cool2
[2021-10-07 17:33] VITALS: TEMP 98.3; O2SAT 100
[2021-10-07 17:34] VITALS: BP 162/98
== END 2021-10-07 16:33 | disposition home or self-care (01) ==
LOC: ER 16:07
DX: S61.441A Puncture wound with foreign body of right hand, initial encounter (principal); F17.210 Nicotine dependence, cigarettes, uncomplicated; Z23 Encounter for immunization
CPT/HCPCS: 90471; 90714; 99283

== ENCOUNTER 2022-12-13 11:07 | Emergency (ER) | payer SELFPAY ==
--- OUTSIDE RECORDS SUMMARY | 2022-12-13 11:11 | XMS REPORT | Continuity of Care Document ---
:1960 Author Organization [facility] t Address [address] [place] [address] Care Team Providers Name Role Phone Kira ZAYAS, Roxy Primary Care Physician [phone] Travis Apodaca MD Attending Clinician Doctor Unassigned, [place] Attending Clinician Unavailable Amaury Brito DO Attending Clinician Payers Payer Name Policy Type Policy Number Effective Date Expiration Date S ource Problems Condition Condition Condition Status Onset Resolution Last Treating Co mments Source Name Details Category Date Date Treatment Clinician Date No known No known Disease Unive rs active active ity of problems problems [place] [facility] Allergies, Adverse Reactions, Alerts Allergy Allergy Status Severity Reaction(s) Onset Inactive Treating Comm ents Source Name Type Date Date Clinician Lisinopr Propensi Active 2021-07 il - ty to 08-04 Oral adverse 00:00: reaction 00 to drug Codeine Propensi Active Other - See 2020-0 [...] 00 Medical Branch TRAMADOL DRUG Active N/V 2019-0 Univers INGREDI 1-22 ity of 00:00: [place] 00 [facility] Branch Lisinopr Propensi Active 2015- il ty to 9-16 adverse 00:00: reaction 00 to drug Social History Social Habit Start Date Stop Date Quantity Comments Source Sex Assigned At Uni versity [facility] Exposure to SARS-CoV-2 Not sure [facility] [place] (event) [facility] Smoking Status Start Date Stop Date Source Unknown if ever smoked Universit y [facility] Medications Ordered Filled Start Stop Current Ordering Indication Dosage Frequency Signature Comments Components Source Medication Medication Date Date Medication? Clinician (SIG) Name Name Dose 2021-07 No Unknown 08-08 00:00: 00 amoxicillin 2019- 2020- No 1{tbl} 1 tablet, Univers -clavulanat 01-16 Oral, ity of e 16:30: 15:52 ONCE, [place] (AUGMENTIN) 00 :00 dose, Sun Med ical 875-125 mg 01/17/20 at [facility] per tablet 1130, 1 tablet CHANNING
Re ason for Anti-Infec tive: Documented Infection< br>Documen oli Infection Site: Abdominal< br>Duratio n of Therapy: 10 days iohexol 2020- No 120mL 120 mL, Unive rs (OMNIPAQUE 01-16 Intravenou it y of 350 13:45: 13:28 s, ONCE, 1 [place] BULK-100 00 :00 dose, Sun Medica l mL) 01/17/20 at Branch injection 0845, 120 mL Routine morpHINE 2019- No 4mg 4 mg, Slow Un santy injection 4 01-16 IV Push, ity of mg 13:45: 14:11 ONCE, 1 [place] 00 :00 dose, Sun Medical 01/17/20 at Branch 0845, STAT famotidine 2020- No 20mg 20 mg, Univ ers (PEPCID 01-16 Intravenou ity o f (PF)) 13:30: 12:48 s, ONCE, 1 [place] injection 00 :00 dose, Sun Medic al 20 mg 01/17/20 at Branch 0830, [place] proMETHazin 2019- No 12.5mg 12.5 mg, Univers e 01-16 IV ity of (PHENERGAN) 13:30: 12:50 Piggyback, [place] 12.5 mg in 00 :00 ONCE, 1 Medica l NaCl 0.9% dose, Sun Branc h (NS) 50 mL 01/17/20 at piggyback 0830, 50 mL NaCl 0.9% 2019-0 2020- No 1000mL at 999 Uni vers (NS) bolus 7-05 07-05 mL/hr, ity of infusion 12:30: 14:13 1,000 mL, [place] as 1,000 mL 00 :00 IV Medical Infusion, Branch ONCE, 1 dose, 01/17/20 at 0730, CHANN[place] dicyclomine 2019-0 Yes [id number] 20mg Take 1 Univers 20 mg 7-05 tablet by ity of tablet 00:00: mouth [place] 00 every 6 Medical (six) Branch hours as needed for Abdominal pain. proMETHazin 2020-0 Yes [id number] 25mg Take 1 Univers e 25 mg 7-05 tablet by ity of tablet 00:00: mouth [place] 00 every 6 Medical (six) Branch hours as needed for Nausea and Vomiting (N/V). lactulose 2019-0 Yes [id number] 30mL Take 30 mL Univers 10 gram/15 7-05 by mouth ity o f mL oral 00:00: daily. [place] solution 00 Until Medical stools are Branch soft amoxicillin 2019-0 2020- No [id number] 1{tbl} Take 1 Univers -clavulanat 7-05 07-16 tablet by it y of e 875-125 00:00: 04:59 mouth [place] mg per 00 :00 every 12 Medical tablet (twelve) Branch hours for 10 days. ondansetron 2019-0 2019- No 4mg 4 mg, Slow Univers (ZOFRAN 08-05 IV Push, ity of (PF)) 22:15: 21:16 ONCE, 1 [place] injection 4 00 :00 dose, Wed Med ical mg 08/05/19 at Branch 1615, [place] dexamethaso 2019-0 2019- No 10mg 10 mg, IV Univers ne 08-05 Push, ity of (DECADRON 22:15: 21:19 ONCE, 1 [place] PHOSPHATE) 00 :00 dose, Wed Medi toshia injection 08/05/19 at Bran ch 10 mg 1615, STAT piperacilli 2020-0 2020- No 3.375g 3.375 g, Univers n-tazobacta 08-05 IV ity of m (ZOSYN) 21:05: 21:50 [place]back, [place] 3.375 g in 00 :00 ONCE, 1 Medica l NaCl 0.9% dose, Sat Branc h (NS) 100 mL 08/05/19 at [...] 08/05/19 at 1515, STAT chlorhexidi 2020-0 Yes [id number] 15mL Swish and Univers ne 0.12 % -22 spit out ity of mouthwash 00:00: 15 mL 2 [place] 00 (two) Medical times Branch daily. methylPREDN 2020-0 Yes [id number] Take by Univers ISolone 1-22 mouth ity of (MEDROL, 00:00: SEE-INSTRU [place] NEGRITA,) 4 mg 00 CTIONS. Medica l tablets follow Branch package directions acetaminoph 2020-0 Yes [id number] 1{tbl} Take 1 Univers en-codeine 1-22 tablet by ity of (TYLENOL-CO 00:00: mouth [place] DEINE #3) 00 every 4 Medical 300-30 mg (four) Branch tablet hours as needed for Pain (scale 7-10). ondansetron 2020-0 Yes [id number] 4mg Take 1 Univers 4 mg 1-22 tablet by ity of disintegrat 00:00: mouth [place] ing tablet 00 every 8 Medica l (eight) Branch hours as needed for Nausea and Vomiting (N/V). penicillin 2020-0 Yes [id number] 1000mg Take 2 Univers v potassium 1-22 tablets by it y of 500 mg 00:00: mouth 2 [place] tablet 00 (two) Medical times Branch daily. chlorhexidi 2020-0 Yes [id number] 15mL Swish and Univers ne 0.12 % 1-22 spit out ity of mouthwash 00:00: 15 mL 2 [place] 00 (two) Medical times Branch daily. methylPREDN 2020-0 Yes [id number] Take by Univers ISolone -22 mouth ity of (MEDROL, 00:00: SEE-INSTRU [place] NEGRITA,) 4 mg 00 CTIONS. Medica l tablets follow Branch package directions acetaminoph 2020-0 Yes [id number] 1{tbl} Take 1 Univers en-codeine 1-22 tablet by ity of (TYLENOL-CO 00:00: mouth [place] DEINE #3) 00 every 4 Medical 300-30 mg (four) Branch tablet hours as needed for Pain (scale 7-10). ondansetron 2020-0 Yes [id number] 4mg Take 1 Univers 4 mg -22 tablet by ity of disintegrat 00:00: mouth [place] ing tablet 00 every 8 Medica l (eight) Branch hours as needed for Nausea and Vomiting (N/V). penicillin 2020-0 Yes [id number] 1000mg Take 2 Univers v potassium -22 tablets by it y of 500 mg 00:00: mouth 2 [place] tablet 00 (two) Medical times Branch daily. ondansetron 2020-0 2020- No [id number] 4mg Take 1 Univers 4 mg -22 07-05 tablet by ity of disintegrat 00:00: 00:00 mouth [place] tablet 00 :00 every 8 Medica l (eight) Branch hours as needed for Nausea and Vomiting (N/V). penicillin 2020-0 2020- No [id number] 1000mg Take 2 Univers v potassium - 07-05 tablets by i ty of 500 mg 00:00: 00:00 mouth 2 [place] tablet 00 :00 (two) Medical times Branch daily. chlorhexidi 2020-0 2020- No [id number] 15mL Swish and Univers ne 0.12 % - 07-05 spit out ity o f mouthwash 00:00: 00:00 15 mL 2 [place] 00 :00 (two) Medical times Branch daily. methylPREDN 2020-0 2020- No [id number] Take by Univers ISolone -22 07-05 mouth ity of (MEDROL, 00:00: 00:00 [place]-INSTRU [place] NEGRITA,) 4 mg 00 :00 CTIONS. Medica l tablets follow Branch package directions acetaminoph 0 2020- No [id number] 1{tbl} Take 1 Univers en-codeine 22 07-05 tablet by ity of (TYLENOL-CO 00:00: 00:00 mouth [place] DEINE #3) 00 :00 every 4 Medical 300-30 mg (four) Branch tablet hours as needed for Pain (scale 7-10). Dose 2018-0 No Unknown 1- 00:00: 00 Dose 2017-0 No Unknown -29 00:00: 00 amlodipine 2018-0 No 1mg 10 mg 3-24 tablet 00:00: 00 famotidine 2018-0 No 1mg 20 mg 3-24 tablet 00:00: 00 promethazin 2018-0 No 1mg e 12.5 mg 3-07 tablet 00:00: 00 amlodipine 2018-0 No 1mg 10 mg 3-01 tablet 00:00: 00 famotidine 2018-0 No 1mg 20 mg 3-01 tablet 00:00: 00 amlodipine 2018-0 No 1mg 10 mg 2-01 tablet 00:00: 00 amlodipine 2017-1 No 1mg 10 mg 1-02 tablet 00:00: 00 famotidine 2017-1 No 1mg 20 mg 1-02 tablet 00:00: 00 amlodipine 2017-0 No 1mg 10 mg 5-05 tablet 00:00: 00 lisinopril 2017-0 No 1mg 10 mg 5-05 tablet 00:00: 00 naproxen 2017-0 No 1mg 500 mg 5-05 tablet 00:00: 00 amlodipine 2017-0 No 1mg 10 mg 1-24 tablet 00:00: 00 ranitidine 2017-0 No 1mg 150 mg 1-24 capsule 00:00: 00 amlodipine 2017-0 No 1mg 5 mg tablet 1-17 00:00: 00 amlodipine 2016-0 No 1mg 5 mg tablet 9-16 00:00: 00 Elimite 5 % 2015-0 No 1% topical 9-14 cream 00:00: 00 lisinopril 2015-0 No 1mg 10 mg 9-14 tablet 00:00: 00 lisinopril 2015-0 No 1mg 10 mg 9-14 tablet 00:00: 00 proMETHazin 2015-0 Yes 25mg Take 1 Tab [...] for Nausea and Vomiting (N/V). traMADOL 2014-0 Yes 50mg Take 1 Tab Uni vers (ULTRAM) 50 9-27 by mouth ity of mg tablet 00:00: every 6 [place] 00 (six) Medical hours as Branch needed for Pain (scale 4-6). proMETHazin 2014-0 Yes 25mg Take 1 Tab Univers e 9-27 by mouth ity of (PHENERGAN) 00:00: every 6 [place] 25 mg 00 (six) Medical tablet hours as Branch needed for Nausea and Vomiting (N/V). traMADOL 2014-0 Yes 50mg Take 1 Tab Uni vers (ULTRAM) 50 9-27 by mouth ity of mg tablet 00:00: every 6 [place] 00 (six) Medical hours as Branch needed for Pain (scale 4-6). proMETHazin 2014-0 2019- No 25mg Take 1 Tab Univers e 9-27 07-05 by mouth ity of (PHENERGAN) 00:00: 00:00 every 6 [place] 25 mg 00 :00 (six) Medical tablet hours as Branch needed for Nausea and Vomiting (N/V). traMADOL 2014-0 2019- No 50mg Take 1 Tab Un santy (ULTRAM) 50 9-27 07-05 by mouth ity of mg tablet 00:00: 00:00 every 6 [place] 00 :00 (six) Medical hours as Branch needed for Pain (scale 4-6). Medrol 2014-0 No mg (Negrita) 4 mg 7-22 tablets in 00:00: a dose pack 00 omeprazole 2014-0 No 1mg 20 mg 6-13 capsule,del 00:00: ayed 00 release Vital Signs Vital Name Observation Time Observation Value Comments Source Oxygen saturation in 2020-01-17 15:59:30 99 /min University of Arterial blood by [facility] toshia Pulse oximetry Branch Systolic blood 2020-01-17 15:00:00 150 mm[Hg] Univer sity of pressure [place] [facility] Diastolic blood 2020-01-17 15:00:00 83 mm[Hg] Unive rsity of pressure [place] [facility] Heart rate 2020-01-17 15:00:00 72 /min [facility]i ty [facility] [place] [facility] Respiratory rate 2020-01-17 15:00:00 18 /min Univ ersity [facility] [place] [facility] Body temperature 2020-01-17 12:10:00 37.44 Hortensia Univ ersity [facility] [place] [facility] Body weight 2020-01-17 12:10:00 72.576 kg [facility] [place] [facility] BMI 2020-01-17 12:10:00 24.33 kg/m2 [facility] [place] [facility] Systolic blood 2019-08-05 22:35:47 154 mm[Hg] Univer sity of pressure [place] [facility] Diastolic blood 2019-08-05 22:35:47 92 mm[Hg] Unive rsity of pressure [place] [facility] Heart rate 2019-08-05 22:35:47 86 /min [facility] [place] [facility] Body temperature 2019-08-05 22:35:47 37.44 Hortensia Univ ers[facility] [place] [facility] Respiratory rate 2019-08-05 22:35:47 18 /min Univ ers[facility] [place] [facility] Oxygen saturation in 2019-08-05 22:35:47 100 /min University of Arterial blood by [facility] Pulse oximetry Branch Body height 2019-08-05 20:35:00 172.7 cm [facility] [place] [facility] Body weight 2019-08-05 20:35:00 72.576 kg [facility] [place] [facility] BMI 2019-08-05 20:35:00 24.33 kg/m2 [facility] [place] [facility] BP Systolic 2022-06-08 14:27:00 186 mm[Hg] BP Diastolic 2022-06-08 14:27:00 102 mm[Hg] Weight Measured 2022-06-08 14:27:00 165.00 pounds Height Measured 2022-06-08 14:27:00 68.00 inches Body Temperature 2022-06-08 14:27:00 98.30 degrees Heart Rate 2022-06-08 14:27:00 64.00 /min Respiratory Rate 2022-06-08 14:27:00 18.00 /min BP Systolic 2018-01-10 16:59:00 148 mm[Hg] BP Diastolic 2018-01-10 16:59:00 90 mm[Hg] Weight Measured 2018-01-10 16:59:00 167.00 pounds Height Measured 2018-01-10 16:59:00 68.00 inches Body Temperature 2018-01-10 16:59:00 98.50 degrees Heart Rate 2018-01-10 16:59:00 71.00 /min Respiratory Rate 2018-01-10 16:59:00 16.00 /min BP Systolic 2017-09-18 14:54:00 138 mm[Hg] BP Diastolic 2017-09-18 14:54:00 94 mm[Hg] Weight Measured 2017-09-18 14:54:00 164.00 pounds Height Measured 2017-09-18 14:54:00 68.00 inches Body Temperature 2017-09-18 14:54:00 98.10 degrees Heart Rate 2017-09-18 14:54:00 73.00 /min Respiratory Rate 2017-09-18 14:54:00 18.00 /min BP Systolic 2017-05-16 17:47:00 159 mm[Hg] BP Diastolic 2017-05-16 17:47:00 93 mm[Hg] Weight Measured 2017-05-16 17:47:00 166.40 pounds Height Measured 2017-05-16 17:47:00 68.00 inches Body Temperature 2017-05-16 17:47:00 98.50 degrees Heart Rate 2017-05-16 17:47:00 71.00 /min Respiratory Rate 2017-05-16 17:47:00 18.00 /min BP Systolic 2016-11-16 17:10:00 138 mm[Hg] BP Diastolic 2016-11-16 17:10:00 88 mm[Hg] Weight Measured 2016-11-16 17:10:00 169.60 pounds Height Measured 2016-11-16 17:10:00 68.00 inches Body Temperature 2016-11-16 17:10:00 98.20 degrees Heart Rate 2016-11-16 17:10:00 80.00 /min Respiratory Rate 2016-11-16 17:10:00 BP Systolic 2016-08-07 17:13:00 155 mm[Hg] BP Diastolic 2016-08-07 17:13:00 96 mm[Hg] Weight Measured 2016-08-07 17:13:00 172.40 pounds Height Measured 2016-08-07 17:13:00 68.00 inches Body Temperature 2016-08-07 17:13:00 97.70 degrees Heart Rate 2016-08-07 17:13:00 72.00 /min Respiratory Rate 2016-08-07 17:13:00 16.00 /min BP Systolic 2016-04-25 13:33:00 138 mm[Hg] BP Diastolic 2016-04-25 13:33:00 84 mm[Hg] Weight Measured 2016-04-25 13:33:00 176.60 pounds Height Measured 2016-04-25 13:33:00 68.00 inches Body Temperature 2016-04-25 13:33:00 98.00 degrees Heart Rate 2016-04-25 13:33:00 70.00 /min Respiratory Rate 2016-04-25 13:33:00 16.00 /min BP Systolic 2016-03-30 10:59:00 124 mm[Hg] BP Diastolic 2016-03-30 10:59:00 84 mm[Hg] Weight Measured 2016-03-30 10:59:00 Height Measured 2016-03-30 10:59:00 Body Temperature 2016-03-30 10:59:00 Heart Rate 2016-03-30 10:59:00 66.00 /min Respiratory Rate 2016-03-30 10:59:00 18.00 /min Respiratory Rate 2016-03-30 09:57:00 18.00 /min BP Systolic 2016-03-30 09:57:00 149 mm[Hg] BP Diastolic 2016-03-30 09:57:00 90 mm[Hg] Weight Measured 2016-03-30 09:57:00 178.40 pounds Height Measured 2016-03-30 09:57:00 68.00 inches Body Temperature 2016-03-30 09:57:00 98.00 degrees Heart Rate 2016-03-30 09:57:00 70.00 /min BP Systolic 2016-03-28 12:26:00 143 mm[Hg] BP Diastolic 2016-03-28 12:26:00 98 mm[Hg] Weight Measured 2016-03-28 12:26:00 Height Measured 2016-03-28 12:26:00 Body Temperature 2016-03-28 12:26:00 Heart Rate 2016-03-28 12:26:00 60.00 /min Respiratory Rate 2016-03-28 12:26:00 16.00 /min Procedures Procedure Date / Time Performing Clinician Source Performed URINALYSIS 2020-01-17 14:14:00 Constanza [facility] CT ABDOMEN PELVIS W 2020-01-17 13:32:27 Constanza [facility] CONTRAST [facility] COVID-19 (ID NOW RAPID 2020-01-17 12:54:00 Constanza [facility] TESTING) Medical Branch LIPASE 2020-01-17 12:23:00 Constanza [facility] HEPATIC FUNCTION PANEL 2020-01-17 12:23:00 Constanza [facility] ([id number]) (ALB,T.PRO,BILI [facility] Branch T,BU/BC,ALT,AST,ALK PHOS) BASIC METABOLIC PANEL 2020-01-17 12:23:00 Constanza [facility] (NA, K, CL, CO2, Medical Branch GLUCOSE, BUN, CREATININE, CA) CBC WITH DIFFERENTIAL 2020-01-17 12:23:00 Constanza [facility] [place] NOTICE OF PRIVACY 2020-01-17 12:00:00 Doctor Unassigned, No [facility] PRACTICES Name [facility] CONSENT/REFUSAL FOR 2020-01-17 11:58:34 [facility] INCISION AND DRAINAGE 2019-08-05 20:40:51 Amaury Brito [facility] CONSENT/REFUSAL FOR 2019-08-05 20:28:16 Doctor Unassigned, No [facility] Name [facility] Branch [address] Ecg Routine Ecg 2016-03-28 00:00:00 W/least 12 Lds W/i r Plan of Care Planned Activity Planned Date Details Comments Source Goal Plan of Care Note [code = 80339-5] Goal Plan of Care Note [code = 71376-1] Goal Plan of Care Note [code = 49356-8] Goal Plan of Care Note [code = 05738-8] Goal Plan of Care Note [code = 55589-2] Goal Plan of Care Note [code = 05883-0] Goal Plan of Care Note [code = 39666-7] Goal Plan of Care Note [code = 38629-7] Goal Plan of Care Note [code = 05051-2] Goal Plan of Care Note [code = 54484-1] Goal Plan of Care Note [code = 76679-6] Goal Plan of Care Note [code = 13031-6] Goal Plan of Care Note [code = 63829-5] Goal Plan of Care Note [code = 18613-2] Goal Plan of Care Note [code = 62383-5] Goal Plan of Care Note [code = 90093-9] Encounters Start End Encounter Admission Attending Care Care Encounter Source Date/Time Date/Time Type Type Clinicians Facility Department ID 2022-07-07 2022-07-[address] [facility] [id number] [place] 10:37:51 10:37:51 1224 F [place] 2022-06-08 2022-06-[address] [facility] [id number] Darnell 14:18:39 14:18:39 1125 F George 2022-06-08 2022-06-08 Outpatient [id number] 00:00:00 00:00:00 Visit [id number] 2020-01-17 2020-01-17 Emergency [place], [facility] [id number] Univers 07:04:34 11:04:00 Travis Vega 350.1.13.10 ity [facility] 4.2.7.2.686 [facility] [id number] [place] [address] Branch 2020-01-17 2020-01-17 Emergency X [facility] ERT [id number] Univers 07:04:34 07:04:34 ity of [facility] 2020-01-17 2020-01-17 Orders Doctor STOLL [id number] Univers 00:00:00 00:00:00 Only Unassigned, VIET 350.1.13.10 ity of [place] [facility] 4.2.7.2.686 [place] [id number] [facility] 009 [place] 2019-08-05 2019-08-05 Emergency Brito, [place] [id number] Univers 14:30:59 18:55:00 Amaury Vega 350.1.13.10 i ty of [place] 4[place]2.7.2.686 [place] [id number] [facility] 084 [place] 2019-08-05 2019-08-05 Orders Doctor JERMAN [id number] Univers 00:00:00 00:00:00 Only Unassigned, VIET 350.1.13.10 ity of [place] [facility] 4.2.7.2.686 [place] [id number] [address] Results Test Description Test Time Test Comments Results Result Comments Source Urinalysis 2020-01-17 14:40:00 Test Item Value Reference Range Interpretation Comme nts APPEARANCE (test code = Clear Clear 5475577042) COLOR (test code = 4710042345) Lissette Yellow A PH (test code = 5768370113) 4.8-8.0 SP GRAVITY (test code = 1.003-1.030 3626664195) GLU U QUAL (test code = Normal Normal 6185610816) BLOOD (test code = 2016764240) Negative Negative KETONES (test code = 8317245350) Negative Negative PROTEIN (test code = 2887-8) Negative Negative UROBILIN (test code = 4.0 mg/dL Normal A 5328551823) BILIRUBIN (test code = Negative Negative 4929336829) NITRITE (test code = 0324882921) Negative Negative LEUK LINDSAY (test code = Negative Negative 3377782621) RBC/HPF (test code = 9803655117) See_Comment [Automated message] The system which ge nerated this result transmit oli reference range: 0 - 3 HP F. The reference range was not used to interpret th is result as normal/abnormal . WBC/HPF (test code = 8004465649) See_Comment [Automated message] The system which ge nerated this result transmit oli reference range: 0 - 5 HP F. The reference range was not used to interpret th is result as normal/abnormal . BACTERIA (test code = Negative Negative 1388855911) Lab Interpretation (test code = Abnormal 53096-0) [place] [facility] [id number] 14:39:35 Motion artifact limiting the evaluation. Mural wall thickening and enhancement and pericolonic fat stranding aremost pronounced about the sigmoid colon with sigmoid colon diverticulosis,these findingsare suggestive diverticulitis. Similar changes areappreciated about the ascending and descending colon suggestive of colitis.No free air or localized fluid collection is identified. Normal-appearingappendix. Preliminary Report Dictated by Resident: Melo Carter ?MD Donn., have reviewed this study and agree withthe above report.EXAM: CT ABDOMEN AND PELVIS WITH CONTRAST HISTORY: 2 day of LLQ abdominal pain, constant with wax/wane intensity,cramping. Leukocytosis of 13.1 COMPARISON: None. TECHNIQUE AND FINDINGS: Contiguous axial imaging from the level of the lungbases throughthe proximal thighs was performed after the administration of120 cc of intravenous Omnipaque contrast. Coronal and sagittalreconstructions were obtained. ?Auto mA and/or iterative reconstructionwere used to reduce radiation dose. FINDINGS: Motion artifact [...] ADRENAL GLANDS: No adrenal nodules. KIDNEYS: No hydron ephrosis, stones, or masses. PERITONEUM AND RETROPERITONEUM: No [...] indentation of the celiac trunk by the di aphragmaticcrus without subsequent dilatation. VESSELS: Unremarkable. BONES AND SOFT TISSUES: No suspicious lytic or sclerotic bony lesions. L4over the L5 grade 1 posterior listhesis is noted. [facility], Radiant Results Inft User - 01/17/2020 9:40 [...] The gallbladder is distended but not dilated.The CBDis mildly dilated measuring 0.7 cm. No gallbladder wallthickening.SPLEEN: No splenomegaly.PANCREAS: No ductal dilation or masses.ADRENAL GLANDS: No adrenal nodules.KIDNEYS: No hydronephrosis, stones, or masses.PERITONEUM AND RETROPERITONEUM: No free air or fluid.LYMPH NODES: No lymphadenopathy.GI TRACT: Small sliding hiatal hernia is noted. Appendix appearsunremarkable (2:90). The colon and rectum isdistended with liquid- likestool. Diverticulosis of the sigmoid colon is noted. Mural wall thickeninga nd enhancement with pericolonic fat stranding is appreciated. The extentof the symptomatic changes cannot be accurately assessed due to motionartifact and it might be involving the ascending and descending colon also.PELVIS/BLADDER: Mild indentation of the celiac trunk by the diaphragmaticcrus withoutsubsequent dilatation.VESSELS: Unremarkable.BONES AND SOFT TISSUES: No suspicious lytic or scleroticbony lesions. L4over the L5 grade 1 posterior listhesis is noted.IMPRESSIONMotion artifact limiting the evaluation.Mural wall thickening and enhancement and pericolonic fat stranding aremost pronouncedabout the sigmoid colon with sigmoid colon diverticulosis,these findings are suggestive diverticulitis. Similar changes areappreciated about the ascending and descending colon suggestive of colitis.No free air or localized fluid collection is identified. Normal-appearingappendix.Preliminary Report Dictated by Resident: Melo Sommers MD., have reviewed this study and agreewiththe above report.[place] [facility] (ID NOW RAPID TESTING)2020-01-17 13:18:00 Test Item Value Reference Range Interpretation Comments SARS-CoV-2 Rapid ID NOW Not Detected Not Detected (test code = 79515-3) FLORENCIO (test code = FLORENCIO) ID NOW COVID-19 Assay is an isothermal nucleic acid amplification test intended for the qualitative detection of nucleic acid from SARS-CoV-2 viral RNA in nasopharyngeal (MARKETING COMMUNICATION MANAGER) specimens. It is used under Emergency Use [...] indicated. Lab Interpretation Normal (test code = 21992-1) [place] [facility] (ALB, T.PRO, BILI T, BU/BC, ALT, AST, ALK PHOS)2020-01-17 12:57:00 Test Item Value Reference Range Interpretation Comments TOTAL BILI (test code = 9698438021) 0.7 mg/dL 0.1-1.1 BILI UNCON (test code = 2890347784) 0.7 mg/dL 0.1-1.1 BILI CONJ (test code = 8866636487) 0.0 mg/dL 0-0.3 T PROTEIN (test code = 8689504886) 7.4 g/dL 6.3-8.2 ALBUMIN (test code = 9724191836) 4.5 g/dL 3.5-5 ALK PHOS (test code = 6138559867) 99 U/L 34-122 ALTv (test code = 1742-6) 23 U/L 5-50 AST(SGOT) (test code = 4565412681) 28 U/L 13-40 Lab Interpretation (test code = Normal 73637-6) [facility] Metabolic Panel (NA, K, CL, CO2, GLUCOSE, BUN, CREATININE, CA)2020-01-17 12:56:00 Test Item Value Reference Range Interpretation Comments NA (test code = 139 mmol/L 135-145 0034978586) K (test code = 3.6 mmol/L 3.5-5 3208894247) CL (test code = 107 mmol/L 98-108 4548630555) CO2 TOTAL (test code = 22 mmol/L 23-31 L [id number]) AGAP (test code = 2-16 3566525556) BUN (test code = 20 mg/dL 7-23 9318993705) GLUCOSE (test code = 197 mg/dL 70-110 H 3579826664) CREATININE (test code = 1.01 mg/dL 0.6-1.25 2903725270) CALCIUM (test code = 9.5 mg/dL 8.6-10.6 8535941029) eGFR Calculation mL/min/1.73m2 (Non-) (test code = 3594015068) eGFR Calculation mL/min/1.73m2 () (test code = 7787577947) FLORENCIO (test code = FLORENCIO) Association of [...] tests). Lab Interpretation Abnormal (test code = 11403-0) [facility] [id number] 12:56:00 Test Item Value Reference Range Interpretation Comments LIPASE (test code = 9114754959) 39 U/L 0-220 Lab Interpretation (test code = Normal 44168-3) [facility]CBC WITH [id number] 12:36:00 Test Item Value Reference Range Interpretation Comments WBC (test code = See_Comment H [Automated 2090-2) message] The sy stem which generated this result transmitted reference range : 4.20 - 10.70 10*3/?L. The reference range was not used to interpret this result as normal/abnormal . RBC (test code = See_Comment [Automated 799-8) message] The sy stem which generated this [...] RDW-SD (test code = 44.1 fL 38.5-51.6 30015-5) RDW-CV (test code = 12.5 % 12.1-15.4 788-0) PLT (test code = See_Comment [Automated 777-3) message] The sy stem which generated this result transmitted reference range : 150 - 328 10*3/ ?L. The reference r negra was not used to interpret this result as normal/abnormal . MPV (test code = 10.2 fL 9.8-13 32079-7) NRBC/100 WBC (test See_Comment [Automat ed code = 2895431550) message] The system which generated this result transmitted reference range : 0.0 - 10.0 /100 WBCs. The refer ence range was not u sed to interpret th is result as normal/abnormal . NRBC x10^3 (test code <0.01 See_Comment [Auto mated = 1331441423) message] The s ystem which generated this result transmitted reference range : 10*3/?L. The reference range was not used to interpret this result as normal/abnormal . GRAN MAT (NEUT) % 68.2 % (test code = 770-8) IMM GRAN % (test code 0.50 % = 6625186518) LYMPH % (test code = 27.7 % 736-9) MONO % (test code = 2.1 % 5905-5) EOS % (test code = 1.2 % 713-8) BASO % (test code = 0.3 % 706-2) GRAN MAT x10^3(ANC) 8.90 10*3/uL 1.99-6.95 H (test code = 7739118312) IMM GRAN x10^3 (test 0.06 10*3/uL 0-0.06 code = 8306738661) LYMPH x10^3 (test code 3.62 10*3/uL 1.09-3.23 H = 731-0) MONO x10^3 (test code 0.27 10*3/uL 0.36-1.02 L = 742-7) EOS x10^3 (test code = 0.16 10*3/uL 0.06-0.53 711-2) BASO x10^3 (test code 0.04 10*3/uL 0.01-0.09 = 704-7) Lab Interpretation Abnormal (test code = 59403-5) [facility] [id number] 20:40:51Amaury Brito, DO ? ? 08/05/2019 ?5:24 PMI and DDate/Time: 08/05/2019 4:55 PMPerformed by: Amaury Brito DOAuthorized by: Amaury Brito DO Consent: ?Consent obtained: ?Verbal ?Consent given by: ?Patient ?Risks discussed: ?Incomplete drainage, bleeding, pain and infection ?Alternatives discussed:?No treatment and delayed treatmentLocation: ?Type: ?Abscess ?Location: [...] ?Needle aspiration: no ? ?Incision types: ?Stab inci luann ?Incision depth: ?Subcutaneous ?Scalpel blade: ?11 ?Wound management: ?Probed and deloculated and irrigated with saline ?Drainage: ?Purulent ?Drainage amount: ?Moderate ?Wound treatment: ?Wound left openPost-procedure details: ?Patient tolerance of procedure: ?Tolerated well, no immediate complications [facility] HospitalCOMPRE[facility] MET[facility] [id number] 00:00:00 Test Item Value Reference Range Interpretation Comments GLUCOSE (test code = 2217) 87 MG/DL BUN (test code = 2208) 18 MG/DL CREATININE (test code = 2214) 0.97 MG/DL eGFR AMER. (test code 100 ML/MIN/1.73 = 98824) eGFR NON- AMER. (test 86 ML/MIN/1.73 code = 92030) CALC BUN/CREAT (test code = 19 RATIO 2235) SODIUM (test code = 2231) 140 MEQ/L POTASSIUM (test code = 2228) 4.2 MEQ/L CHLORIDE (test code = 2215) 102 MEQ/L CARBON DIOXIDE (test code = 25 MEQ/L 2205) CALCIUM (test code = 2209) 9.6 MG/DL PROTEIN, TOTAL (test code = 7.0 G/DL 2228) ALBUMIN (test code = 2201) 4.9 G/DL CALC GLOBULIN (test code = 2.1 G/DL 2240) CALC A/G RATIO (test code = 2.3 RATIO 2234) BILIRUBIN, TOTAL (test code = 0.2 MG/DL 2206) ALKALINE PHOSPHATASE (test 97 U/L code = 2204) AST (test code = 2218) 22 U/L ALT (test code = 2219) 20 U/L COMPREHENSIVE METABOLIC [id number] 00:00:00 Test Item Value Reference Range Interpretation Comments GLUCOSE (test code = 2217) 87 MG/DL BUN (test code = 2208) 18 MG/DL CREATININE (test code = 2214) 0.97 MG/DL eGFR AMER. (test code 100 ML/MIN/1.73 = 37500) eGFR NON- AMER. (test 86 ML/MIN/1.73 code = 13019) CALC BUN/CREAT (test code = 19 RATIO 2235) SODIUM (test code = 2231) 140 MEQ/L POTASSIUM (test code = 2228) 4.2 MEQ/L CHLORIDE (test code = 2215) 102 MEQ/L CARBON DIOXIDE (test code = 25 MEQ/L 2205) CALCIUM (test code = 2209) 9.6 MG/DL PROTEIN, TOTAL (test code = 7.0 G/DL 2228) ALBUMIN (test code = 2201) 4.9 G/DL CALC GLOBULIN (test code = 2.1 G/DL 2240) CALC A/G RATIO (test code = 2.3 RATIO 2234) BILIRUBIN, TOTAL (test code = 0.2 MG/DL 2206) ALKALINE PHOSPHATASE (test 97 U/L code = 2204) AST (test code = 2218) 22 U/L ALT (test code = 2219) 20 U/L [id number] 00:00:00 Test Item Value Reference Range Interpretation Comments AMYLASE (test code = 2205) 71 U/L [id number] 00:00:00 Test Item Value Reference Range Interpretation Comments AMYLASE (test code = 2205) 71 U/L [id number] 00:00:00 Test Item Value Reference Range Interpretation Comments LIPASE (test code = 2057) 19 U/L [id number] 00:00:00 Test Item Value Reference Range Interpretation Comments LIPASE (test code = 2057) 19 U/L [id number] 00:00:00 Test Item Value Reference Range Interpretation Comments LIPASE (test code = 2057) 19 U/L COMPREHENSIVE METABOLIC [id number] 00:00:00 Test Item Value Reference Range Interpretation Comments GLUCOSE (test code = 2217) 104 MG/DL BUN (test code = 2208) 16 MG/DL CREATININE (test code = 2214) 0.98 MG/DL eGFR AMER. (test code 99 ML/MIN/1.73 = 66136) eGFR NON- AMER. (test 86 ML/MIN/1.73 code = 85887) CALC BUN/CREAT (test code = 16 RATIO 2235) SODIUM (test code = 2231) 143 MEQ/L POTASSIUM (test code = 2228) 5.1 MEQ/L CHLORIDE (test code = 2215) 101 MEQ/L CARBON DIOXIDE (test code = 28 MEQ/L 220) CALCIUM (test code = 2209) 9.6 MG/DL PROTEIN, TOTAL (test code = 7.3 G/DL 2228) ALBUMIN (test code = 2201) 4.8 G/DL CALC GLOBULIN (test code = 2.5 G/DL 0) CALC A/G RATIO (test code = 1.9 RATIO 4) BILIRUBIN, TOTAL (test code = 0.4 MG/DL 2206) ALKALINE PHOSPHATASE (test 100 U/L code = 2204) AST (test code = 2218) 19 U/L ALT (test code = 2219) 24 U/L COMPREHENSIVE METABOLIC [id number] 00:00:00 Test Item Value Reference Range Interpretation Comments GLUCOSE (test code = 2217) 104 MG/DL BUN (test code = 2208) 16 MG/DL CREATININE (test code = 2214) 0.98 MG/DL eGFR AMER. (test code 99 ML/MIN/1.73 = 36248) eGFR NON- AMER. (test 86 ML/MIN/1.73 code = 13393) CALC BUN/CREAT (test code = 16 RATIO 2235) SODIUM (test code = 2231) 143 MEQ/L POTASSIUM (test code = 2228) 5.1 MEQ/L CHLORIDE (test code = 2215) 101 MEQ/L CARBON DIOXIDE (test code = 28 MEQ/L 2206) CALCIUM (test code = 2209) 9.6 MG/DL PROTEIN, TOTAL (test code = 7.3 G/DL 2228) ALBUMIN (test code = 2201) 4.8 G/DL CALC GLOBULIN (test code = 2.5 G/DL 2239) CALC A/G RATIO (test code = 1.9 RATIO 2233) BILIRUBIN, TOTAL (test code = 0.4 MG/DL 2206) ALKALINE PHOSPHATASE (test 100 U/L code = 220) AST (test code = 2218) 19 U/L ALT (test code = 2219) 24 U/L H. PYLORI IgG [id number] 00:00:00 Test Item Value Reference Range Interpretation Comments H. PYLORI IgG ANTIBODY (test code = <0.4 U/mL 848101)"
[2022-12-13 12:33] LABS: Absolute Lymphocytes (CBC) 1.2 K/uL (0.7-4.9); Hematocrit 43.7 % (39.6-49.0); Lymphocytes % 11.3 % (15.3-44.8); MCV 97.3 fL (80-100); MPV 8.2 fL (7.6-11.3); RBC Red Blood Cell Count 4.49 M/uL (4.33-5.43)
[2022-12-13 12:42] LABS: Bilirubin Total 0.7 mg/dL (0.2-1.0); Potassium 3.3 mEq/L (3.5-5.1); Protein, Total 7.2 g/dL (6.4-8.2)
[2022-12-13] MEDS ORDERED: FAMOTIDINE 20 MG/2 ML VIAL IV ONE (12:51)
[2022-12-13] MEDS ORDERED: NA CHLORIDE 0.9% 1,000 ML ONE (12:51)
--- NOTE | 2022-12-13 13:44 | RAD REPORT ---
EXAM DESCRIPTION: CT - Abdomen Pelvis Wo Contrast - 12/13/2022 1:01 pm CLINICAL HISTORY: ABD PAIN COMPARISON: No comparisons TECHNIQUE: Thin cut axial CT imaging of the abdomen and pelvis was performed without IV contrast. Mu ltiplanar reformats were generated and reviewed. All CT scans are performed using dose optimization technique as appropriate and may include automated exposure control or mA/KV adjustment according to patient size. FINDINGS: No suspicious findings in the lung bases. The liver, spleen, and pancreas show no suspicious findings. Sub centimeter liver dome hypoattenuatin g lesion, not well characterized, but may represent a small cyst. Gallbladder mild layering slightly hyperdense sludge. Biliary tree without suspicious finding. Symmetric renal contour, without suspicious parenchymal findings within limits of noncontrast techniq ue. No evidence of radiopaque calculi or hydroureteronephrosis. No dilated bowel loops. Bowel wall thickening throughout most of the colon, most pronounced along the sigmoid and descending colon. Nondistention somewhat limits evaluation. Fat stranding is present blaire ng the proximal sigmoid segment, with a few diverticula. No free air, free fluid, or localized fluid collections. No suspicious mass or bulky lymphadenopathy. Fat containing left inguinal hernia. The ur inary bladder is without significant finding. No suspicious bony findings. IMPRESSION: Bowel wall thickening throughout most of the colon most pronounced along the sigmoid and descending colon. Evaluation is somewhat limited by nondistention. This suggests diffuse or segmenta l colitis. Segment of more pronounced wall thickening and fat stranding along the proximal sigmoid, with few div erticula, suggestive of superimposed changes of acute diverticulitis. No evidence of complications. The findings were communicated to Tomas Boothe on 12/13/2022 at 13:37 hours.
--- NOTE | 2022-12-13 13:50 | ER ---
Nurse's Notes [facility] Name: Vadim Wilson Age: 62 yrs Sex: Male : 1960 Arrival Date: 12/13/2022 Time: 11:07 Bed DIS5 Private MD: Diagnosis: Diverticulitis of large intestine without perforation or abscess without bleeding;Left sided colitis;Diarrhea, unspecified Presentation: 12/13 11:17 Chief complaint: Patient states: "I've been having severe cramping since Saturday, lower mb9 abdominal pain, N/D. The pain feels like when I had my last bout of diverticulitis.". Coronavirus screen: Vaccine status: Patient reports receiving the 2nd dose of the covid vaccine. Ebola Screen: No symptoms or risks identified at this time. Initial Sepsis Screen: Does the patient meet any 2 criteria? No. Patient's initial sepsis screen is negative. Does the patient have a suspected source of infection? No. Patient's initial sepsis screen is negative. Risk Assessment: Do you want to hurt yourself or someone else? Patient reports no desire to harm self or others. Onset of symptoms was December 13, 2022. 11:17 Method Of Arrival: Ambulatory 9 11:17 Acuity: RENITA 3 mb9 Triage Assessment: 11:20 General: Appears uncomfortable, Behavior is cooperative. Pain: Complains of pain in mb9 abdomen Pain currently is 7 out of 10 on a pain scale. Pain began 2-3 days ago. Is continuous. Neuro: Patten Agitation-Sedation Scale (RASS): 0 - Alert and Calm Level of Consciousness is awake, alert, obeys commands, Oriented to person, place, time, situation, Appropriate for age. Respiratory: Airway is patent. GI: Abdomen is flat, non-distended, Reports diarrhea, nausea. Derm: Skin is pink, warm \\T\\ dry. Musculoskeletal: Range of motion: intact in all extremities. Historical: - Allergies: 11:18 tramadol; mb9 - Home Meds: 11:18 amlodipine oral [Active]; mb9 - PMHx: 11:18 Diverticulitis; Hypertensive disorder; acid reflux; mb9 - PSHx: 11:18 None; mb9 - Immunization history:: Adult Immunizations. - Social history:: Smoking status: Patient reports the use of cigarette tobacco products, smokes one pack cigarettes per day. Vital Signs: 11:17 BP 139 / 90; Pulse 88; Resp 18; Temp 98.4(O); Pulse Ox 100% on R/A; Weight 72.57 kg; mb9 Height 5 ft. 7 in. ; Pain 7/10; 11:17 Body Mass Index 25.06 (72.57 kg, 170.18 cm) mb9 11:17 Pain Scale: Adult mb9 ED Course: 11:09 Patient arrived in ED. mr 11:18 Triage completed. mb9 11:18 Tomas Boothe DO is Attending Physician. ms3 11:18 Arm band placed on. mb9 13:02 Abdomen In Process Unspecified. EDMS 13:42 Lori Nance, RN is Primary Nurse. iw 13:49 Sahil Mcfarland MD is Referral Physician. ms3 Administered Medications: 12:48 Drug: NS 0.9% IV 1000 ml Route: IV; Rate: 1 bolus; Site: left forearm; iw 12:48 Drug: Famotidine IVP 20 mg Route: IVP; Site: left forearm; iw Outcome: 13:49 Discharge ordered by . ms3 14:17 Patient left the ED. iw Signatures: Dispatcher [employer] EDNH Holly Bergman Irene, RN BRANDT iw Tomas Boothe DO DO ms3 Holly Daniel, RN BRANDT mb9
--- NOTE | 2022-12-13 13:50 | EDPHYS ---
Physician Documentation [facility] Name: Vadim Wilson Age: 62 yrs Sex: Male : 1960 Arrival Date: 12/13/2022 Time: 11:07 Bed DIS5 Private MD: ED Physician Tomas Boothe HPI: 12/13 11:36 This 62 yrs old Male presents to ER via Ambulatory with complaints of Abdominal Pain, ms3 Vomiting/Diarrhea. 11:36 62-year-old male with past medical history of diverticulitis, hypertension, GERD ms3 presents for periumbilical cramping that he rates a 4/10. Patient denies alleviating or inciting factors. Patient denies fevers, chills, bloody bowel movements.. Historical: - Allergies: 11:18 tramadol; mb9 - Home Meds: 11:18 amlodipine oral [Active]; mb9 - PMHx: 11:18 Diverticulitis; Hypertensive disorder; acid reflux; mb9 - PSHx: 11:18 None; mb9 - Immunization history:: Adult Immunizations. - Social history:: Smoking status: Patient reports the use of cigarette tobacco products, smokes one pack cigarettes per day. ROS: 11:36 Constitutional: Negative for fever, and chills. ENT: Negative for injury, pain, and ms3 discharge, Neck: Negative for injury, pain, and swelling, Cardiovascular: Negative for chest pain, and palpitations. Respiratory: Negative for shortness of breath, cough, wheezing, and pleuritic chest pain. 11:36 MS/Extremity: Negative for injury and deformity, Skin: Negative for injury, rash, and discoloration. 11:36 Abdomen/GI: Positive for abdominal pain. 11:36 All other systems are negative. Exam: 11:36 Constitutional: This is a well developed, well nourished patient who is awake, alert, ms3 and in no acute distress. Head/Face: Normocephalic, atraumatic. Neck: Trachea midline, no cervical lymphadenopathy. Supple, full range of motion without nuchal rigidity, or vertebral point tenderness. No Meningismus. Chest/axilla: Normal chest wall appearance and motion. Nontender with no deformity. Cardiovascular: Regular rate and rhythm with a normal S1 and S2. No gallops, murmurs, or rubs. Normal PMI, no JVD. No pulse deficits. Respiratory: Lungs have equal breath sounds bilaterally, clear to auscultation and percussion. No rales, rhonchi or wheezes noted. No increased work of breathing, no retractions or nasal flaring. 11:36 Skin: Warm, dry with normal turgor. Normal color with no rashes, no lesions, and no evidence of cellulitis. 11:36 Abdomen/GI: Inspection: abdomen appears normal, Bowel sounds: normal, Palpation: mild abdominal tenderness, in the umbilical area. Vital Signs: 11:17 BP 139 / 90; Pulse 88; Resp 18; Temp 98.4(O); Pulse Ox 100% on R/A; Weight 72.57 kg; mb9 Height 5 ft. 7 in. ; Pain 7/10; 11:17 Body Mass Index 25.06 (72.57 kg, 170.18 cm) mb9 11:17 Pain Scale: Adult mb9 MDM: 11:24 Patient medically screened. ms3 11:36 Differential diagnosis: Nonspecific abd pain, gastritis, appendicitis, diverticulitis, ms3 viral gastroenteritis, gastroenteritis. 14:00 Data reviewed: vital signs, nurses notes, lab test result(s), radiologic studies, CT ms3 scan, and as a result, I will discharge patient. I considered the following discharge prescriptions or medication management in the emergency department Medications were administered in the Emergency Department. See MAR. Care significantly affected by the following chronic conditions: Hypertension. Care significantly affected by the following Social Determinants of Health: Poor access to healthcare and/or lack of insurance. Counseling: I had a detailed discussion with the patient and/or guardian regarding: the historical points, exam findings, and any diagnostic results supporting the discharge/admit diagnosis, lab results, radiology results, the need for outpatient follow up, to return to the emergency department if symptoms worsen or persist or if there are any questions or concerns that arise at home. Response to treatment: the patient's symptoms have mildly improved after treatment, and as a result, I will discharge patient. Special discussion: I discussed with the patient/guardian in detail that at this point there is no indication for admission to the hospital. It is understood, however, that if the symptoms persist or worsen the patient needs to return immediately for re-evaluation. ED course: Discussed labs and imaging with patient. Patient to follow-up with Dr. Szymanski. Patient understands and agrees to plan. All questions were answered. Return precautions discussed include worsening symptoms, or any other concerns. On reevaluation patient is alert and orient x4, no apparent distress, nontoxic-appearing, speaking full sentences, tolerating p.o.. 12/13 11:24 Order name: CBC with Diff; Complete Time: 13:47 ms3 12/13 11:24 Order name: CMP; Complete Time: 13:47 ms3 12/13 11:24 Order name: Lipase; Complete Time: 13:47 ms3 12/13 13:01 Order name: Abdomen ; Complete Time: 13:47 EDMS 12/13 11:24 Order name: IV Saline Lock; Complete Time: 12:09 ms3 12/13 11:24 Order name: Labs collected and sent; Complete Time: 12:09 ms3 Administered Medications: 12:48 Drug: NS 0.9% IV 1000 ml Route: IV; Rate: 1 bolus; Site: left forearm; iw 12:48 Drug: Famotidine IVP 20 mg Route: IVP; Site: left forearm; iw Disposition Summary: 12/13/22 13:49 Discharge Ordered Location: Home ms3 Condition: Stable ms3 Diagnosis - Diverticulitis of large intestine without perforation or abscess without bleeding ms3 - Left sided colitis ms3 - Diarrhea, unspecified ms3 Followup: ms3 - With: Sahil Mcfarland MD - When: 2 - 3 days - Reason: Recheck today's complaints Discharge Instructions: - Discharge Summary Sheet ms3 - Diarrhea, Adult ms3 - Diverticulitis, [id number]-wd-[id number] ms3 - Colitis ms3 Forms: - Medication Reconciliation Form ms3 - Thank You Letter ms3 - Antibiotic Education ms3 - Prescription Opioid Use ms3 Prescriptions: - Augmentin 875-125 mg Oral Tablet - take 1 tablet by ORAL route every 12 hours for 10 days; 20 tablet; Refills: 0, ms3 Product Selection Permitted Signatures: Dispatcher [employer] Lori Ohara RN BRANDT iw Tomas Boothe DO DO ms3 Holly Daniel RN RN mb9 Corrections: (The following items were deleted from the chart) 13:01 11:25 Abdomen Pelvis W Con+CT.RAD.BRZ ordered. EDMS EDMS
[2022-12-13 14:28] VITALS: BP 139/90; TEMP 98.4; O2SAT 100
== END 2022-12-13 14:17 | disposition home or self-care (01) ==
LOC: ER 11:07
DX: K57.32 Diverticulitis of large intestine without perforation or abscess without bleeding (principal); K51.50 Left sided colitis without complications
CPT/HCPCS: 36415; 74176; 80053; 83690; 85025; 96374; 99284; J7030

== ENCOUNTER 2023-02-12 14:01 | Emergency (ER) | payer SELFPAY ==
--- OUTSIDE RECORDS SUMMARY | 2023-02-12 14:37 | XMS REPORT | Continuity of Care Document ---
:1960 Author Organization [facility] t Address [address] [place] [address] Care Team Providers Name Role Phone Kira ZAYAS, Roxy Primary Care Physician [phone] Travis Apodaca MD Attending Clinician Doctor Unassigned, [place] Attending Clinician Unavailable Amaury Brito DO Attending Clinician Payers Payer Name Policy Type Policy Number Effective Date Expiration Date S ource Problems Condition Condition Condition Status Onset Resolution Last Treating Co mments Source Name Details Category Date Date Treatment Clinician Date No known No known Disease Unive rs active active ity of problems problems [place] [facility] [place] Allergies, Adverse Reactions, Alerts Allergy Allergy Status Severity Reaction(s) Onset Inactive Treating Comm ents Source Name Type Date Date Clinician Lisinopr Propensi Active 2021-07 il - ty to 08-04 Oral adverse 00:00: reaction 00 to drug Codeine Propensi Active Other - See 2019-0 Shaking U nivers ty to comments 08-05 ity of adverse 00:00: [place] reaction 00 Medical s Branch Lisinopr Propensi Active Palpitations 2019-0 Univers il ty to 08-05 ity of adverse 00:00: [place] reaction 00 Medical s Branch Tramadol Propensi Active Nausea 2020-0 Univer s ty to and/or 08-05 ity of adverse Vomiting 00:00: [place] reaction 00 Medical s Branch CODEINE DRUG Active Other-Cmnt 2019-0 Unive rs INGREDI 08-05 ity of 00:00: [place] 00 Medical Branch LISINOPR DRUG Active Palpitations 2020-0 Un santy [place] INGREDI 08-05 ity of 00:00: [place] 00 Medical Branch TRAMADOL DRUG Active N/V 2019-0 Univers INGREDI 08-05 ity of 00:00: [place] 00 [facility] Lisinopr Propensi Active 2015- il ty to 9-16 adverse 00:00: reaction 00 to drug Social History Social Habit Start Date Stop Date Quantity Comments Source Sex Assigned At Uni versity [facility] Exposure to SARS-CoV-2 Not sure [facility] [place] (event) [facility] [place] Smoking Status Start Date Stop Date Source Unknown if ever smoked Universit y [facility] Medications Ordered Filled Start Stop Current Ordering Indication Dosage Frequency Signature Comments Components Source Medication Medication Date Date Medication? Clinician (SIG) Name Name Dose 2021-07 No Unknown 08-08 00:00: 00 amoxicillin 2019- 2020- No 1{tbl} 1 tablet, Univers -clavulanat 01-16 Oral, ity of e 16:30: 15:52 ONCE, [place] (AUGMENTIN) 00 :00 dose, [facility] ical 875-125 mg 01/17/20 at [facility] per tablet 1130, 1 tablet [place]
Re ason for Anti-Infec tive: Documented Infection< br>Documen oli Infection Site: Abdominal< br>Duratio n of Therapy: 10 days iohexol 2020- No 120mL 120 mL, Unive rs (OMNIPAQUE 01-16 Intravenou it y of 350 13:45: 13:28 s, ONCE, 1 [place] BULK-100 00 :00 dose, [facility] Med[facility] l mL) 01/17/20 at Branch injection 0845, 120 mL Routine morpHINE 2019- No 4mg 4 mg, Slow Un santy injection 4 01-16 IV Push, ity of mg 13:45: 14:11 ONCE, 1 [place] 00 :00 dose, [facility] 01/17/20 at Branch 0845, STAT famotidine 2020- No 20mg 20 mg, Univ ers (PEPCID 01-16 Intravenou ity o f (PF)) 13:30: 12:48 s, ONCE, 1 [place] injection 00 :00 dose, [facility] Medic al 20 mg 01/17/20 at Branch 0830, [place] proMETHazin 2019- No 12.5mg 12.5 mg, Univers e 01-16 IV ity of (PHENERGAN) 13:30: 12:50 Piggyback, [place] 12.5 mg in 00 :00 ONCE, 1 Medica l NaCl 0.9% dose, Sun Branc h (NS) 50 mL 01/17/20 at piggyback 0830, 50 mL NaCl 0.9% 2019-2019- No 1000mL at 999 Uni vers (NS) bolus 7-05 07-05 mL/hr, ity of infusion 12:30: 14:13 1,000 mL, [place] 1,000 mL 00 :00 IV Medical Infusion, Branch ONCE, 1 dose, 01/17/20 at 0730, [place] dicyclomine 2019-0 Yes [id number] 20mg Take 1 Univers 20 mg 7-05 tablet by ity of tablet 00:00: mouth [place] 00 every 6 Medical (six) Branch hours as needed for Abdominal pain. proMETHazin 2019-0 Yes [id number] 25mg Take 1 Univers e 25 mg 7-05 tablet by ity of tablet 00:00: mouth [place] 00 every 6 Medical (six) Branch hours as needed for Nausea and Vomiting (N/V). lactulose 2019-0 Yes [id number] 30mL Take 30 mL Univers 10 gram/15 7-05 by mouth ity o f mL oral 00:00: daily. [place] solution 00 Until Medical stools are Branch soft amoxicillin 2019-0 2020- No [id number] 1{tbl} Take 1 Univers -clavulanat 7-05 07-16 [...] 08/05/19 at 1515, STAT chlorhexidi 2020-0 Yes [id number] 15mL Swish and Univers ne 0.12 % -22 spit out ity of mouthwash 00:00: 15 mL 2 [place] 00 (two) Medical times Branch daily. methylPREDN 2020-0 Yes [id number] Take by Univers ISolone 1-22 mouth ity of (MEDROL, 00:00: SEE-INSTRU [place] NEGRITA,) 4 mg 00 CTIONS. Medica l tablets follow Branch package directions acetaminoph 2020-0 Yes [id number] 1{tbl} Take 1 Univers en-codeine 1-22 tablet by ity of (TYLENOL-CO 00:00: mouth [place] DEINE #3) 00 every 4 Medical 300-30 mg (four) Branch tablet hours as needed for Pain (scale 7-10). ondansetron 2020-0 Yes [id number] 4mg Take 1 Univers 4 mg 1-22 tablet by ity of disintegrat 00:00: mouth [place] ing tablet 00 every 8 Medica l (eight) Branch hours as needed for Nausea and Vomiting (N/V). penicillin 2020-0 Yes [id number] 1000mg Take 2 Univers v potassium 1-22 tablets by it y of 500 mg 00:00: mouth 2 [place] tablet 00 (two) Medical times Branch daily. chlorhexidi 2020-0 Yes [id number] 15mL Swish and Univers ne 0.12 % -22 spit out ity of mouthwash 00:00: 15 mL 2 [place] 00 (two) Medical times Branch daily. methylPREDN 2020-0 Yes [id number] Take by Univers ISolone 1-22 mouth ity of (MEDROL, 00:00: SEE-INSTRU [place]GR[place],) 4 mg 00 CTIONS. Medica l tablets follow Branch package directions acetaminoph 2020-0 Yes [id number] 1{tbl} Take 1 Univers en-codeine 1-22 tablet by ity of (TYLENOL-CO 00:00: mouth [place] DEINE #3) 00 every 4 Medical 300-30 mg (four) Branch tablet hours as needed for Pain (scale 7-10). ondansetron 2020-0 Yes [id number] 4mg Take 1 Univers 4 mg 1-22 tablet by ity of disintegrat 00:00: mouth [place] ing tablet 00 every 8 Medica l (eight) Branch hours as needed for Nausea and Vomiting (N/V). penicillin 2020-0 Yes [id number] 1000mg Take 2 Univers v potassium 1-22 tablets by it y of 500 mg 00:00: mouth 2 [place] tablet 00 (two) Medical times Branch daily. chlorhexidi 2019-0 2020- No [id number] 15mL Swish and Univers ne 0.12 % - 07-05 spit out ity o f mouthwash 00:00: 00:00 15 mL 2 [place] 00 :00 (two) Medical times Branch daily. methylPREDN 2019-0 2020- No [id number] Take by Univers ISolone 1-22 07-05 mouth ity of (MEDROL, 00:00: 00:00 [place]-INSTRU [place],) 4 mg 00 :00 CTIONS. Medica l tablets follow Branch package directions acetaminoph 2019-0 2020- No [id number] 1{tbl} Take 1 Univers en-codeine 1-22 07-05 tablet by ity of (TYLENOL-CO 00:00: 00:00 [place] DEINE #3) 00 :00 every 4 Medical 300-30 mg (four) Branch tablet hours as needed for Pain (scale 7-10). ondansetron 2019-0 2020- No [id number] 4mg Take 1 Univers 4 mg 1-22 07-05 tablet by ity of disintegrat 00:00: 00:00 [place] tablet 00 :00 every 8 Medica l (eight) Branch hours as needed for Nausea and Vomiting (N/V). penicillin 2020-0 2020- No [id number] 1000mg Take 2 Univers v potassium 1-22 07-05 tablets by i ty of 500 mg 00:00: 00:00 mouth 2 [place] tablet 00 :00 (two) Medical times Branch daily. Dose 2019-0 No Unknown 1-29 00:00: 00 Dose 2018-0 No Unknown 6-29 00:00: 00 amlodipine 2018-0 No 1mg 10 [...] tablet 9-16 00:00: 00 Elimite 5 % 2016-0 No 1% topical 9-14 cream 00:00: 00 lisinopril 2015-0 No 1mg 10 mg 9-14 tablet 00:00: 00 lisinopril 2016-0 No 1mg 10 mg 9-14 tablet 00:00: [...] 99 /min University of Arterial blood by [facility] toshia Pulse oximetry Branch Systolic blood 2020-01-17 15:00:00 150 mm[Hg] Univer sity of pressure [place] [facility] Diastolic blood 2020-01-17 15:00:00 83 mm[Hg] Unive rsity of pressure [place] [facility] Heart rate 2020-01-17 15:00:00 72 /min Universi ty [facility] [place] [facility] Respiratory rate 2020-01-17 15:00:00 18 /min Univ ers[facility] [place] [facility] Body temperature 2020-01-17 12:10:00 37.44 Hortensia Univ ers[facility] [place] [facility] Body weight 2020-01-17 12:10:00 72.576 kg [facility] [place] [facility] BMI 2020-01-17 12:10:00 24.33 kg/m2 [facility] [place] [facility] Systolic blood 2019-08-05 22:35:47 154 mm[Hg] Univer sity of pressure [place] [facility] Diastolic blood 2019-08-05 22:35:47 92 mm[Hg] Unive rsity of pressure [place] [facility] Heart rate 2019-08-05 22:35:47 86 /min [facility]i [facility] [place] [facility] Body temperature 2019-08-05 22:35:47 37.44 Hortensia Univ ers[facility] [place] [facility] Respiratory rate 2019-08-05 22:35:47 18 /min Univ ersity of [place] [facility] Oxygen saturation in 2019-08-05 22:35:47 100 /min University of Arterial blood by [facility] Pulse oximetry Branch Body height 2019-08-05 20:35:00 172.7 cm [facility] [place] [facility] Body weight 2019-08-05 20:35:00 72.576 kg [facility] [place] [facility] BMI 2019-08-05 20:35:00 24.33 kg/m2 [facility] [place] [facility] BP Systolic 2022-06-08 14:27:00 186 [...] Clinician Source Performed URINALYSIS 2020-01-17 14:14:00 Constanza [facility] CT ABDOMEN PELVIS W 2020-01-17 13:32:27 Constanza [facility] CONTRAST [facility] COVID-19 (ID NOW RAPID 2020-01-17 12:54:00 Constanza [facility] TESTING) Medical Branch LIPASE 2020-01-17 12:23:00 Constanza [facility] HEPATIC FUNCTION PANEL 2020-01-17 12:23:00 Constanza [facility] ([id number]) (ALB,T.PRO,BILI [facility] T,BU/BC,ALT,AST,ALK PHOS) BASIC METABOLIC PANEL 2020-01-17 12:23:00 Constanza [facility] (NA, K, CL, CO2, Medical Branch GLUCOSE, BUN, CREATININE, CA) CBC WITH DIFFERENTIAL 2020-01-17 12:23:00 Constanza [facility] NOTICE OF PRIVACY 2020-01-17 12:00:00 Doctor Unassigned, No [facility] PRACTICES Name [facility] CONSENT/REFUSAL FOR 2020-01-17 11:58:34 [facility] Name [facility] INCISION AND DRAINAGE 2019-08-05 20:40:51 Amaury Brito [facility] CONSENT/REFUSAL FOR 2019-08-05 20:28:16 Doctor Unassigned, [facility] Name [facility] [id number] Ecg Routine Ecg 2016-03-28 00:00:00 W/least 12 Lds W/i r Plan of Care Planned Activity Planned Date Details Comments Source Goal Plan of Care Note [code = 38069-0] Goal Plan of Care Note [code = 22635-3] Goal Plan of Care Note [code = 40663-7] Goal Plan of Care Note [code = 79936-1] Goal Plan of Care Note [code = 35741-7] Goal Plan of Care Note [code = 60798-5] Goal Plan of Care Note [code = 72097-6] Goal Plan of Care Note [code = 35016-4] Goal Plan of Care Note [code = 60834-4] Goal Plan of Care Note [code = 30825-9] Goal Plan of Care Note [code = 15880-7] Goal Plan of Care Note [code = 51446-6] Goal Plan of Care Note [code = 97309-3] Goal Plan of Care Note [code = 63123-7] Goal Plan of Care Note [code = 47952-6] Goal Plan of Care Note [code = 14471-7] Encounters Start End Encounter Admission Attending Care Care Encounter Source Date/Time Date/Time Type Type Clinicians Facility Department ID 2022-07-07 2022-07-[address] [facility] [id number] [place] 10:37:51 10:37:51 1224 F George 2022-06-08 2022-06-[address] [facility] [id number] Darnell 14:18:39 14:18:39 1125 F George 2022-06-08 2022-06-08 Outpatient [id number] 00:00:00 00:00:00 Visit [id number] 2020-01-17 2020-01-17 Emergency [place], [facility] [id number] Univers 07:04:34 11:04:00 Travis Vega 350.1.13.10 ity [facility] 4.2.7.2.686 [facility] [phone] [place] [address] Branch 2020-01-17 2020-01-[address] [facility] ERT [id number] Univers 07:04:34 07:04:34 ity of [facility] 2020-01-17 2020-01-17 Orders Doctor STOLL [id number] Univers 00:00:00 00:00:00 Only Unassigned, VIET 350.1.13.10 ity of [place] [facility] 4.2.7.2.686 [place] [id number] [facility] 009 [place] 2019-08-05 2019-08-05 Emergency Brito, UTGARY [id number] Univers 14:30:59 18:55:00 Amaury Vega 350.1.13.10 i [place] 4[place]7.2.686 [place] [id number] [facility] 084 [place] 2019-08-05 2019-08-05 Orders Doctor JERMAN [id number] Univers 00:00:00 00:00:00 Only Unassigned, VIET 350.1.13.10 ity of [place] [facility] 4.2.7.2.686 [place] [id number] [address] Results Test Description Test Time Test Comments Results Result Comments Source Urinalysis 2020-01-17 14:40:00 Test Item Value Reference Range Interpretation Comme nts APPEARANCE (test code = Clear Clear 3782850463) COLOR (test code = 6692992817) Lissette Yellow A PH (test code = 2182377749) 4.8-8.0 SP GRAVITY (test code = 1.003-1.030 8501533170) GLU U QUAL (test code = Normal Normal 1655099091) BLOOD (test code = 3006965899) Negative Negative KETONES (test code = 3979783443) Negative Negative PROTEIN (test code = 2887-8) Negative Negative UROBILIN (test code = 4.0 mg/dL Normal A 5816190402) BILIRUBIN (test code = Negative Negative 3429488916) NITRITE (test code = 4753101403) Negative Negative LEUK LINDSAY (test code = Negative Negative 3482686720) RBC/HPF (test code = 5105915594) See_Comment [Automated message] The system which ge nerated this result transmit oli reference range: 0 - 3 HP F. The reference range was not used to interpret th is result as normal/abnormal . WBC/HPF (test code = 8029706369) See_Comment [Automated message] The system which ge nerated this result transmit oli reference range: 0 - 5 HP F. The reference range was not used to interpret th is result as normal/abnormal . BACTERIA (test code = Negative Negative 6550404278) Lab Interpretation (test code = Abnormal 16329-9) [facility] PELVIS W [id number] 14:39:35 Motion artifact limiting the evaluation. Mural [...] L5 grade 1 posterior listhesis is noted. [facility], Radiant Results Inft User - 01/17/2020 9:40 [...] is identified. Normal-appearingappendix.Preliminary Report Dictated by Resident: Obadah EzzeldinI, Melo Carlisle-Mcbride, MD., have reviewed this study and agreewiththe above report.[facility] (ID NOW RAPID TESTING)2020-01-17 13:18:00 Test Item Value Reference Range Interpretation Comments SARS-CoV-2 Rapid ID NOW Not Detected Not Detected (test code = 92072-5) FLORENCIO (test code = FLORENCIO) ID NOW COVID-19 Assay is an isothermal nucleic acid amplification test intended for the qualitative detection of nucleic acid from SARS-CoV-2 viral RNA in nasopharyngeal (DELIVERY DIRECTOR) specimens. It is used under Emergency Use [...] indicated. Lab Interpretation Normal (test code = 76587-8) [facility] Function Panel (ALB, T.PRO, BILI T, BU/BC, ALT, AST, ALK PHOS)2020-01-17 12:57:00 Test Item Value Reference Range Interpretation Comments TOTAL BILI (test code = 1558734090) 0.7 mg/dL 0.1-1.1 BILI UNCON (test code = 9960621226) 0.7 mg/dL 0.1-1.1 BILI CONJ (test code = 9224498576) 0.0 mg/dL 0-0.3 T PROTEIN (test code = 6394443376) 7.4 g/dL 6.3-8.2 ALBUMIN (test code = 5352316194) 4.5 g/dL 3.5-5 ALK PHOS (test code = 4900213518) 99 U/L 34-122 ALTv (test code = 1742-6) 23 U/L 5-50 AST(SGOT) (test code = 4982638533) 28 U/L 13-40 Lab Interpretation (test code = Normal 88167-4) [facility] Met[facility] Panel (NA, K, CL, CO2, GLUCOSE, BUN, CREATININE, CA)2020-01-17 12:56:00 Test Item Value Reference Range Interpretation Comments NA (test code = 139 mmol/L 135-145 2229583907) K (test code = 3.6 mmol/L 3.5-5 5984603730) CL (test code = 107 mmol/L 98-108 1783532389) CO2 TOTAL (test code = 22 mmol/L 23-31 L 9065271267) AGAP (test code = 2-16 0278978342) BUN (test code = 20 mg/dL 7-23 1811244320) GLUCOSE (test code = 197 mg/dL 70-110 H 2820871969) CREATININE (test code = 1.01 mg/dL 0.6-1.25 9719294282) CALCIUM (test code = 9.5 mg/dL 8.6-10.6 2002085016) eGFR Calculation mL/min/1.73m2 (Non-) (test code = 2024801441) eGFR Calculation mL/min/1.73m2 () (test code = 0816129968) FLORENCIO (test code = FLORENCIO) Association of [...] tests). Lab Interpretation Abnormal (test code = 11982-2) [facility] Worth[facility] [id number] 12:56:00 Test Item Value Reference Range Interpretation Comments LIPASE (test code = 7146785359) 39 U/L 0-220 Lab Interpretation (test code = Normal 68604-3) [facility] WITH [id number] 12:36:00 Test Item Value Reference Range Interpretation [...] RDW-SD (test code = 44.1 fL 38.5-51.6 37491-4) RDW-CV (test code = 12.5 % 12.1-15.4 788-0) PLT (test code = See_Comment [Automated 777-3) message] The sy stem which generated this result transmitted reference range : 150 - 328 10*3/ ?L. The reference r negra was not used to interpret this result as normal/abnormal . MPV (test code = 10.2 fL 9.8-13 11768-2) NRBC/100 WBC (test See_Comment [Automat ed code = 1219170513) message] The system which generated this result transmitted reference range : 0.0 - 10.0 /100 WBCs. The refer ence range was not u sed to interpret th is result as normal/abnormal . NRBC x10^3 (test code <0.01 See_Comment [Auto mated = 4375777683) message] The s ystem which generated this result transmitted reference range : 10*3/?L. The reference range was not used to interpret this result as normal/abnormal . GRAN MAT (NEUT) % 68.2 % (test code = 770-8) IMM GRAN % (test code 0.50 % = 3847254877) LYMPH % (test code = 27.7 % 736-9) MONO % (test code = 2.1 % 5905-5) EOS % (test code = 1.2 % 713-8) BASO % (test code = 0.3 % 706-2) GRAN MAT x10^3(ANC) 8.90 10*3/uL 1.99-6.95 H (test code = 9013033712) IMM GRAN x10^3 (test 0.06 10*3/uL 0-0.06 code = 3392050526) LYMPH x10^3 (test code 3.62 10*3/uL 1.09-3.23 H = 731-0) MONO x10^3 (test code 0.27 10*3/uL 0.36-1.02 L = 742-7) EOS x10^3 (test code = 0.16 10*3/uL 0.06-0.53 711-2) BASO x10^3 (test code 0.04 10*3/uL 0.01-0.09 = 704-7) Lab Interpretation Abnormal (test code = 80029-9) [facility] and [id number] 20:40:51Amaury Brito, DO ? ? 08/05/2019 ?5:24 [...] of procedure: ?Tolerated well, no immediate complications [facility] Worth[facility]PREHENSIVE METABOLIC [id number] 00:00:00 Test Item Value Reference Range Interpretation Comments GLUCOSE (test code = 2217) 87 MG/DL BUN (test code = 2208) 18 MG/DL CREATININE (test code = 2214) 0.97 MG/DL eGFR AMER. (test code 100 ML/MIN/1.73 = 62163) eGFR NON- AMER. (test 86 ML/MIN/1.73 code = 81874) CALC BUN/CREAT (test code = 19 RATIO 2235) SODIUM (test code = 2231) 140 MEQ/L POTASSIUM (test code = 2228) 4.2 MEQ/L CHLORIDE (test code = 2215) 102 MEQ/L CARBON DIOXIDE (test code = 25 MEQ/L 2205) CALCIUM (test code = 2209) 9.6 MG/DL PROTEIN, TOTAL (test code = 7.0 G/DL 2229) ALBUMIN (test code = 2201) 4.9 G/DL CALC GLOBULIN (test code = 2.1 G/DL 2240) CALC A/G RATIO (test code = 2.3 RATIO 2234) BILIRUBIN, TOTAL (test code = 0.2 MG/DL 2206) ALKALINE PHOSPHATASE (test 97 U/L code = 2204) AST (test code = 2218) 22 U/L ALT (test code = 2219) 20 U/L COMPREHENSIVE METABOLIC [id number] 00:00:00 Test Item Value Reference Range Interpretation Comments GLUCOSE (test code = 2217) 87 MG/DL BUN (test code = 2208) 18 MG/DL CREATININE (test code = 2214) 0.97 MG/DL eGFR AMER. (test code 100 ML/MIN/1.73 = 45302) eGFR NON- AMER. (test 86 ML/MIN/1.73 code = 89149) CALC BUN/CREAT (test code = 19 RATIO 2235) SODIUM (test code = 2231) 140 MEQ/L POTASSIUM (test code = 2228) 4.2 MEQ/L CHLORIDE (test code = 2215) 102 MEQ/L CARBON DIOXIDE (test code = 25 MEQ/L 2206) CALCIUM (test code = 2209) [...] ALT (test code = 2219) 20 U/L [id number] 00:00:00 Test Item Value Reference Range Interpretation Comments AMYLASE (test code = 2205) 71 U/L [id number] 00:00:00 Test Item Value Reference Range Interpretation Comments AMYLASE (test code = 2205) 71 U/L [id number] 00:00:00 Test Item Value Reference Range Interpretation Comments LIPASE (test code = 2057) 19 U/L [id number] 00:00:00 Test Item Value Reference Range Interpretation Comments LIPASE (test code = 2057) 19 U/L [id number] 00:00:00 Test Item Value Reference Range Interpretation Comments LIPASE (test code = 2057) 19 U/L COMPREHENSIVE METABOLIC [id number] 00:00:00 Test Item Value Reference Range Interpretation Comments GLUCOSE (test code = 2217) 104 MG/DL BUN (test code = 2208) 16 MG/DL CREATININE (test code = 2214) 0.98 MG/DL eGFR AMER. (test code 99 ML/MIN/1.73 = 05645) eGFR NON- AMER. (test 86 ML/MIN/1.73 code = 63467) CALC BUN/CREAT (test code = 16 RATIO [...] code = 2219) 24 U/L COMPREHENSIVE METABOLIC [id number] 00:00:00 Test Item Value Reference Range Interpretation Comments GLUCOSE (test code = 2217) 104 MG/DL BUN (test code = 2208) 16 MG/DL CREATININE (test code = 2214) 0.98 MG/DL eGFR AMER. (test code 99 ML/MIN/1.73 = 14410) eGFR NON- AMER. (test 86 ML/MIN/1.73 code = 98513) CALC BUN/CREAT (test code = 16 RATIO [...] ALKALINE PHOSPHATASE (test 100 U/L code = 2203) AST (test code = 2218) 19 U/L ALT (test code = 2219) 24 U/L H. PYLORI IgG [id number] 00:00:00 Test Item Value Reference Range Interpretation Comments H. PYLORI IgG ANTIBODY (test code = <0.4 U/mL 621244)"
[2023-02-12] MEDS ORDERED: HYDROCODONE/APAP 7.5/325 MG TAB ONE (14:41)
--- NOTE | 2023-02-12 16:11 | RAD REPORT ---
EXAM DESCRIPTION: RAD - Wrist Right 3 View - 02/12/2023 3:27 pm CLINICAL HISTORY: Right wrist pain status post injury FINDINGS: Mildly displaced intra-articular fracture distal radius. No dislocation
--- NOTE | 2023-02-12 16:22 | ER ---
Nurse's Notes [facility] Name: Vadim Wilson Age: 62 yrs Sex: Male : 1960 Arrival Date: 02/12/2023 Time: 14: Bed 9 Private MD: Diagnosis: acute distal radius fracture, intraarticular, right Presentation: 02/12 14:16 Chief complaint: Patient states: right wrist pain s/p fall last night. Pt states that iw he slipped down the stairs and used his right arm to catch himself and is having increased pain. Coronavirus screen: Vaccine status: Patient reports receiving the 2nd dose of the covid vaccine. Ebola Screen: No symptoms or risks identified at this time. Initial Sepsis Screen: Does the patient meet any 2 criteria? No. Patient's initial sepsis screen is negative. Does the patient have a suspected source of infection? No. Patient's initial sepsis screen is negative. Risk Assessment: Do you want to hurt yourself or someone else? Patient reports no desire to harm self or others. Onset of symptoms was February 11, 2023. 14:16 Method Of Arrival: Ambulatory iw 14:16 Acuity: RENITA 4 iw Triage Assessment: 14:20 General: Appears in no apparent distress. comfortable, Behavior is calm, cooperative. iw Pain: Complains of pain in dorsal aspect of right wrist Pain radiates to right arm Pain currently is 9 out of 10 on a pain scale. Quality of pain is described as aching, throbbing, Pain began 1 day ago. 14:20 Neuro: No deficits noted. Level of Consciousness is awake, alert, Oriented to person, iw place, time, situation. Respiratory: No deficits noted. Airway is patent Respiratory effort is even, unlabored, Respiratory pattern is regular, symmetrical. Musculoskeletal: Reports pain in right arm and right hand and dorsal aspect of right wrist. Injury Description: Fall. Historical: - Allergies: 14:19 tramadol; iw 14:19 Lisinopril; iw - PMHx: 14:19 acid reflux; Diverticulitis; Hypertensive disorder; iw - Immunization history:: Adult Immunizations unknown. - Social history:: Smoking status: Patient reports the use of cigarette tobacco products, smokes 1.5 packs per day. Screenin:26 [facility] ED Fall Risk Assessment (Adult) History of falling in the last 3 months, cm10 including since admission Yes- single mechanical fall (1 pt) Confusion or Disorientation No (0 pts) Intoxicated or Sedated No (0 pts) Impaired Gait No (0 pts) Mobility Assist Device Used No (0 pt) Altered Elimination No (0 pt) Score/Fall Risk Level 0 - 2 = Low Risk Oriented to surroundings, Maintained a safe environment, Hourly rounding (assess needs \T\ fall precautionary measures) done. Abuse screen: Denies threats or abuse. Denies injuries from another. Nutritional screening: No deficits noted. Tuberculosis screening: No symptoms or risk factors identified. Assessment: 14:25 Reassessment: See triage assessment. cm10 Vital Signs: 14:16 BP 140 / 86; Pulse 77; Resp 18; Temp 97.8(TE); Pulse Ox 98% ; Weight 72.57 kg; Height 5 iw ft. 8 in. ; Pain 9/10; 15:48 Pain 7/10; cm10 14:16 Body Mass Index 24.33 (72.57 kg, 172.72 cm) iw 14:16 Pain Scale: Adult iw 15:48 Pain Scale: Adult cm10 ED Course: 14:02 Patient arrived in ED. rg4 14:11 Liss Ferro PA-C is PHCP. sb4 14:11 Kervin Troy MD is Attending Physician. sb4 14:19 Triage completed. iw 14:19 Arm band placed on Patient placed in an exam room, on a stretcher. iw 14:26 Patient has correct armband on for positive identification. Bed in low position. Call cm10 light in reach. Side rails up X 1. Provided Education on: N/A. 15:28 Wrist Right 3 View XRAY In Process Unspecified. EDMS 16:21 Lyle Carvalho MD is Referral Physician. sb4 16:24 Lori Nance RN is Primary Nurse. iw 17:40 No provider procedures requiring assistance completed. Patient did not have IV access iw during this emergency room visit. Administered Medications: 14:32 Drug: Hydrocodone-Acetaminophen PO (7.5 mg-325 mg) 1 tabs Route: PO; cm10 15:48 Follow up: Pain 7/10 Adult; Response: No adverse reaction; Pain is decreased cm10 16:35 Drug: morphine IM 4 mg Route: IM; Site: left deltoid; iw 17:00 Follow up: Response: No adverse reaction; Pain is decreased iw 16:35 Drug: Ondansetron PO 4 mg Route: PO; iw 17:00 Follow up: Response: No adverse reaction iw Medication: 14:26 VIS not applicable for this client. cm10 Outcome: 16:21 Discharge ordered by MD. werner 17:40 Discharged to home ambulatory, with family. iw 17:40 Condition: good 17:40 Discharge instructions given to patient, family, Instructed on discharge instructions, follow up and referral plans. Demonstrated understanding of instructions, follow-up care, medications, Prescriptions given X 1. 17:41 Patient left the ED. iw Signatures: Dispatcher [employer] Lori Ohara, RN Regine Nguyễn Sophia PA-C PADayana Stevenson RN RN cm10
--- NOTE | 2023-02-12 16:22 | EDPHYS ---
Physician Documentation [facility] Name: Vadim Wilson Age: 62 yrs Sex: Male : 1960 Arrival Date: 02/12/2023 Time: 14: Bed 9 Private MD: ED Physician Kervin Troy HPI: 02/12 14:41 This 62 yrs old Male presents to ER via Ambulatory with complaints of Wrist Injury. sb4 14:41 The patient or guardian reports injury, pain. The complaints affect the right wrist sb4 diffusely. Context: The problem was sustained at home, resulted from a fall, slipped, while walking, on an outstretched hand. Onset: The symptoms/episode began/occurred last night. Modifying factors: The symptoms are alleviated by nothing, the symptoms are aggravated by movement. Associated signs and symptoms: Pertinent positives: tingling proximally, decreased hand strength. Compartment Syndrome positive for pain, tingling. The patient has experienced a previous episode, approximately 30 years ago. The patient has not recently seen a physician. Historical: - Allergies: 14:19 tramadol; iw 14:19 Lisinopril; iw - PMHx: 14:19 acid reflux; Diverticulitis; Hypertensive disorder; iw - Immunization history:: Adult Immunizations unknown. - Social history:: Smoking status: Patient reports the use of cigarette tobacco products, smokes 1.5 packs per day. ROS: 14:41 Constitutional: Negative for fever, chills, and weight loss. sb4 14:41 MS/extremity: Positive for injury or acute deformity, decreased range of motion, pain, swelling, tingling, Negative for deformity, ecchymosis, erythema, paresthesias, puncture, warmth. 14:41 Neuro: 14:41 All other systems are negative. Exam: 14:41 Hand exam: is negative for deformity, ecchymosis, erythema, open injury, perfusion sb4 abnormalities, pulse abnormalities, snuff box/scaphoid tenderness, Exam is positive for decreased range of motion, injury, pain, swelling, tenderness, ROM: limited active range of motion due to pain, limited passive range of motion due to pain, Circulation is intact in all extremities. sensation intact. Compartment Syndrome exam of affected extremity: numbness, tingling, no severe pain, no sensation deficit, no palor, no weak pulses. 14:41 Constitutional: This is a well developed, well nourished patient who is awake, alert, and in no acute distress. Head/Face: Normocephalic, atraumatic. Skin: Warm, dry with normal turgor. Normal color with no rashes, no lesions, and no evidence of cellulitis. Vital Signs: 14:16 BP 140 / 86; Pulse 77; Resp 18; Temp 97.8(TE); Pulse Ox 98% ; Weight 72.57 kg; Height 5 iw ft. 8 in. ; Pain 9/10; 15:48 Pain 7/10; cm10 14:16 Body Mass Index 24.33 (72.57 kg, 172.72 cm) iw 14:16 Pain Scale: Adult iw 15:48 Pain Scale: Adult cm10 MDM: 14:11 Patient medically screened. sb4 14:41 Differential diagnosis: dislocation, open fracture, closed fracture, contusion. sb4 16:19 Data reviewed: vital signs, nurses notes, radiologic studies, plain films, I have sb4 discussed the patient's presentation/case with the attending Emergency Department Physician; and as a result, I will discharge patient. Historians other than the Patient: Spouse/Significant Other: significant other. Care significantly affected by the following chronic conditions: Hypertension. Care significantly affected by the following Social Determinants of Health: Poor access to healthcare and/or lack of insurance. Counseling: I had a detailed discussion with the patient and/or guardian regarding: the historical points, exam findings, and any diagnostic results supporting the discharge/admit diagnosis, radiology results, the need for outpatient follow up, a orthopedic surgeon. 02/12 14:29 Order name: Wrist Right 3 View XRAY; Complete Time: 16:11 sb4 02/12 16:11 Order name: Sugar Tong Forearm Splint; Complete Time: 17:29 sb4 Administered Medications: 14:32 Drug: Hydrocodone-Acetaminophen PO (7.5 mg-325 mg) 1 tabs Route: PO; cm10 15:48 Follow up: Pain 7/10 Adult; Response: No adverse reaction; Pain is decreased cm10 16:35 Drug: morphine IM 4 mg Route: IM; Site: left deltoid; iw 17:00 Follow up: Response: No adverse reaction; Pain is decreased iw 16:35 Drug: Ondansetron PO 4 mg Route: PO; iw 17:00 Follow up: Response: No adverse reaction iw Disposition Summary: 02/12/23 16:21 Discharge Ordered Location: Home sb4 Condition: Stable sb4 Problem: new sb4 Symptoms: have improved sb4 Diagnosis - acute distal radius fracture, intraarticular, right sb4 Followup: sb4 - With: Lyle Carvalho MD - When: 1 week - Reason: Recheck today's complaints, Re-evaluation by your physician Discharge Instructions: - Discharge Summary Sheet sb4 - Wrist Splint or Brace, Adult, [id number] sb4 - Wrist Fracture Treated With Immobilization, [id number] sb4 Forms: - Medication Reconciliation Form sb4 - Thank You Letter sb4 - Antibiotic Education sb4 - Prescription Opioid Use sb4 - Patient Portal Instructions sb4 Prescriptions: - Cyclobenzaprine 10 mg Oral Tablet - take 1 tablet by ORAL route every 8 hours As needed; 30 tablet; Refills: 0, sb4 Product Selection Permitted Signatures: Dispatcher [employer] Lori Ohara, Liss Melendez RN, PA-C PA-C sbDayana Piper RN RN cm10
[2023-02-12] MEDS ORDERED: MORPHINE 4 MG/ML SYR ONE (16:36)
[2023-02-12] MEDS ORDERED: ONDANSETRON 4 MG (ODT) TAB ONE (16:37)
[2023-02-12 17:57] VITALS: BP 140/86; TEMP 97.8; O2SAT 98
== END 2023-02-12 17:41 | disposition home or self-care (01) ==
LOC: ER 14:01
PROC: 2W3CX1Z Immobilization of Right Lower Arm using Splint (ICD-10-PCS; principal; 2023-02-12)
DX: S52.571A Other intraarticular fracture of lower end of right radius, initial encounter for closed fracture (principal)
CPT/HCPCS: Q0162